=== PATIENT | female | born 1965 | race Caucasian/White ===

== ENCOUNTER → 2016-08-17 | Outpatient (CLI) | payer BC ==
[~2016-08-17] MED LIST: ADVIN25/60 INH; ALBU1AER9 INH; ALPR-411 PO; AMLO2.5T PO; DICY10CA12 PO; LISI-729 PO; MOME50SP5 NAE; MONT1TAB3 PO; NITR0.4S UT; PRLSR20 PO; PRM625 PO; VENL75CA73 PO
== END | disposition home or self-care (01) ==
LOC: C.PAPS 08:41
PROVIDERS: ATTEND Obstetrics & Gynecology
DX: Z01.419 Encounter for gynecological examination (general) (routine) without abnormal findings (principal)

== ENCOUNTER → 2016-11-16 | Outpatient (CLI) | payer BC ==
--- NOTE | 2016-11-18 08:21 | MAMMOGRAPHY REPORT ---
BILATERAL DIGITAL SCREENING MAMMOGRAM TOMOSYNTHESIS WITH CAD: 11/16/2016 CLINICAL HISTORY: Routine screening. Patient has no complaints. TECHNIQUE: Breast tomosynthesis in addition to standard 2D mammography was performed. Current study was also evaluated with a Computer Aided Detection (CAD) system. COMPARISON: Comparison is made to exams dated: 11/13/2015 mammogram, 08/10/2014 mammogram, 12/26/2012 kiki mogram, 12/16/2011 mammogram - [facility], 09/13/2009 mammogram, and 03/29/2008 mammog milan - [facility]. BREAST COMPOSITION: The tissue of both breasts is almost entirely fatty. FINDINGS: There are a few benign-appearing punctate microcalcifications in the breasts. No suspicio us mass, architectural distortion or cluster of microcalcifications is seen. IMPRESSION: ACR BI-RADS CATEGORY 1: NEGATIVE There is no mammographic evidence of malignancy. A 1 year screening mammogram is recommended. The pa tient will receive written notification of the results. Approximately 10% of breast cancers are not detected with mammography. A negative mammographic report should not delay biopsy if a clinically suggestive mass is present. Dalila Hayden M.D. ay/:11/17/2016 16:19:54 Advertising Analyst: Mary Jo COSME(Yaz)(Jessica), [facility] letter sent: Normal 1/2 BI-RADS Code: ACR BI-RADS Category 1: Negative
== END | disposition home or self-care (01) ==
LOC: C.MAMM 11:41
PROVIDERS: ATTEND Obstetrics & Gynecology
DX: Z12.31 Encounter for screening mammogram for malignant neoplasm of breast (principal)

== ENCOUNTER → 2016-12-07 | Outpatient (CLI) | payer BC ==
[~2016-12-07] MED LIST changes: +OPTIRAY 320 IV PRN
--- NOTE | 2016-12-07 17:51 | DIAGNOSTIC IMAGING REPORT ---
CT OF THE ABDOMEN AND PELVIS WITH CONTRAST CLINICAL HISTORY: Abdominal pain. COMPARISON STUDY: Abdominal ultrasound October 18, 2015. TECHNIQUE: Following IV administration of 120 mL of Optiray-320, axial images of the abdomen and pelvis were obtained from the lung bases to the proximal femurs. Images were reviewed in the axial, sagittal, and coronal planes. IV contrast was administered without complication. Oral contrast was administered. CT DOSE: 1003.78 mGycm FINDINGS: The liver, spleen, adrenal glands and pancreas are normal. Numerous bilateral renal calculi are noted. The largest is an 8 mm calculus within the upper pole of the left kidney. There are no ureteral calculi. There is no biliary or pancreatic ductal dilatation. There is no evidence for a bowel obstruction. There is a moderate to large amount of stool within the colon. The appendix is normal. There is moderate infiltration adjacent to the mid sigmoid colon. This colonic diverticulosis. There is no free air or abscess. The findings suggest acute diverticulitis. Skeletal structures are unremarkable. IMPRESSION: 1. Findings consistent with acute sigmoid diverticulitis. Moderate pericolonic infiltration. No free air or abscess. A follow-up colonoscopy once the patient's symptoms resolve is recommended to exclude the unlikely possibility of an underlying mucosal lesion. 2. Moderate to large amount of stool within the colon. 3. Bilateral nephrolithiasis. No ureteral calculi. Electronically signed by: Km Rendon M.D. 12/07/2016 5:50 PM Dictated Date/Time: 12/07/2016 5:42 PM
== END | disposition home or self-care (01) ==
LOC: C.CTS 14:59
PROVIDERS: ATTEND Family Medicine
DX: R10.9 Unspecified abdominal pain (principal); N20.0 Calculus of kidney

== ENCOUNTER 2017-02-05 15:37 | Emergency (ER) | payer BC ==
[~2017-02-05] VITALS: Ht 172.7 cm; Wt 86.8 kg
[~2017-02-05 15:37] MED LIST changes: -OPTIRAY 320 IV PRN
[2017-02-05 15:46] VITALS: TEMP 36.7; Ht 172.7 cm; Wt 86.8 kg
[2017-02-05] MEDS ORDERED: SODIUM CHLORIDE 0.9% 1000ML 1,000 ML IV STA (15:51)
--- NOTE | 2017-02-05 16:16 | DIAGNOSTIC IMAGING REPORT ---
CHEST ONE VIEW PORTABLE HISTORY: 52 years-old Female EVALUATE ALTERED MENTAL STATUS/WEAKNESS COMPARISON: Chest radiograph 04/13/2013 TECHNIQUE: Portable upright AP view of the chest FINDINGS: Cardiomediastinal and hilar silhouettes are within normal limits. No pneumothorax, pleural effusion or focal airspace consolidation. There is no overt pulmonary edema. The bones are grossly intact. IMPRESSION: No acute cardiopulmonary process. The above report was generated using voice recognition software. It may contain grammatical, syntax or spelling errors. Electronically signed by: Nader Byrd M.D. 02/05/2017 4:15 PM Dictated Date/Time: 02/05/2017 4:14 PM
[2017-02-05 16:38] LABS: BASO % 0.6 %; BASO ABS # 0.04 K/uL (0-0.2); COMPLETE YES; EOS % 1.4 %; HEMATOCRIT 38.1 % (37-47); IG% 0.2 %; LYMPH % 25.6 %; LYMPH ABS # 1.65 K/uL (1.2-3.4); MEAN CELL VOLUME 94.5 fL (80-100); MEAN CORPUSCULAR HEMOGLOBIN 30.8 pg (25-34); MEAN CORPUSCULAR HGB CONC 32.5 g/dl (32-36); MEAN PLATELET VOLUME 9.8 fL (7.4-10.4); MONO % 5.3 %; NEUT % 66.9 %; PLATELET COUNT 217 K/uL (130-400); RED BLOOD COUNT 4.03 M/uL (4.2-5.4); WHITE BLOOD COUNT 6.45 K/uL (4.8-10.8)
[2017-02-05 16:41] LABS: PROTHROMBIN TIME (PATIENT) 10.5 SECONDS (9.0-12.0)
--- NOTE | 2017-02-05 16:47 | DIAGNOSTIC IMAGING REPORT ---
HEAD WITHOUT CONTRAST (CT) CLINICAL HISTORY: 52 years-old Female with EVALUATE ALTERED MENTAL STATUS/WEAKNESS. TECHNIQUE: Multiple axial CT images of the head were obtained without contrast. A dose lowering technique was utilized adhering to the principles of ALARA. CT DOSE: 614.27 mGy.cm COMPARISON: None. FINDINGS: No acute intracranial hemorrhage, midline shift, mass, large territorial ischemia or abnormal extra-axial collection. Patchy areas of low attenuation within the periventricular white matter of the cerebral hemispheres bilaterally, notably within the frontal lobes at the level of the centrum semiovale are noted. The calvarium is intact. Small left mastoid effusion is noted. Paranasal sinuses are generally clear. Soft tissues and orbits are unremarkable. IMPRESSION: 1. No acute intracranial hemorrhage, midline shift or territorial ischemia. 2. Patchy areas of low-attenuation within the periventricular white matter of the cerebral hemispheres bilaterally, notably within the frontal lobes at the level of the centrum semiovale are nonspecific. Differential considerations would include chronic microvascular ischemic changes or demyelinating disease. 3. Small left mastoid effusion. The above report was generated using voice recognition software. It may contain grammatical, syntax or spelling errors. Electronically signed by: Nader Byrd M.D. 02/05/2017 4:46 PM Dictated Date/Time: 02/05/2017 4:43 PM
[2017-02-05 16:50] LABS: ALT/SGPT 26 U/L (12-78); AST/SGOT 20 U/L (15-37); BLOOD UREA NITROGEN 9 mg/dl (7-18); BUN/CREATININE RATIO 11.2 (10-20); CALCIUM 8.7 mg/dl (8.5-10.1); CARBON DIOXIDE 32 mmol/L (21-32); CHLORIDE 106 mmol/L (98-107); CREATININE 0.79 mg/dl (0.60-1.20); GLUCOSE 106 mg/dl (70-99); MAGNESIUM 2.3 mg/dl (1.8-2.4); POTASSIUM 3.6 mmol/L (3.5-5.1); SODIUM 142 mmol/L (136-145)
[2017-02-05 16:55] LABS: ALKALINE PHOSPHATASE 99 U/L (45-117); CKMB/CK RATIO 0.9 (0-3.0)
--- NOTE | 2017-02-05 17:02 | DIAGNOSTIC IMAGING REPORT ---
LEFT WRIST 4 VIEWS HISTORY: Fall. left ulnar wrist pain COMPARISON: None. FINDINGS: There is no fracture or dislocation. Soft tissues are unremarkable. No radiopaque foreign bodies. Severe osteoarthritis at the first carpometacarpal joint. IMPRESSION: No fractures. Electronically signed by: Serge Fox M.D. 02/05/2017 5:01 PM Dictated Date/Time: 02/05/2017 5:00 PM
[2017-02-05 17:22] LABS: URINE APPEARANCE CLEAR (CLEAR); URINE BILIRUBIN NEG (NEG); URINE COLOR YELLOW; URINE EPITHELIAL CELL AUTO >30 /lpf (0-5); URINE NITRITE NEG (NEG); URINE SPECIFIC GRAVITY 1.018 (1.000-1.030); UROBILINOGEN NEG (NEG); ZZUR CULT IF INDIC CLEAN CATCH NO
[2017-02-05 17:26] LABS: MANUAL MICROSCOPIC REQUIRED? NO; REVIEW REQ? NO
--- NOTE | 2017-02-05 17:47 | EMERGENCY ROOM VISIT NOTE ---
History Report prepared by Gustavo: John Garcia Under the Supervision of: Dr. Doug Feliz D.O. First contact with patient: 15:51 Chief Complaint: FALL Stated Complaint: HEADACHE/BLACK EYE/NECK/SHOULDER PAIN FR FALL 02/04 History of Present Illness The patient is a 52 year old female who presents to the Emergency Room with complaints of a sudden fall occurring around 0100 this morning after losing consciousness. The patient was in the kitchen walking, and she fell and hit her left forehead, left wrist, and left knee. She is currently complaining of a headache on the left side and some left knee pain. The patient denies any vomiting, weakness, numbness, chest pain or shortness of breath. She states that she was not dizzy or light headed prior to falling. The patient states that she is not on any blood thinners. She has a history of asthma, IBS, and an FL during a surgery, and she denies any history of seizures. The patient states that she was at [place] [facility] [facility], and they told her to come to the ED for evaluation and a CT scan. Source of History: patient Onset: 0100 this morning Position: other (global) Quality: other (fall) Timing: other (sudden) Associated Symptoms: + headache Note: Associated symptoms: left knee pain Review of Systems See HPI for pertinent positives & negatives. A total of 10 systems reviewed and were otherwise negative. Past Medical & Surgical Medical Problems: (1) Heart attack Surgical Problems: (1) History of sinus surgery Social History Smoking Status: Never Smoker Alcohol Use: none Drug Use: none Occupation Status: employed Current/Historical Medications Scheduled Estrogens, Conjugated (Premarin), 0.625 MG PO DAILY Fluticasone Prop/Salmeterol (Advair Diskus 250/50 60 Dose), 1 PUFF INH BID Nitroglycerin (Nitrostat), 0.4 MG UT PRN Omeprazole (Prilosec), 20 MG PO DAILY Venlafaxine Hcl (Venlafaxine Extended Rel), 75 MG PO DAILY Scheduled PRN Albuterol (Proair Hfa), 2 PUFFS INH QID PRN for Shortness of Breath Alprazolam (Xanax), 0.5 MG PO DAILY PRN for UNKN Dicyclomine Hcl (Dicyclomine Hcl), 10 MG PO BID/PRN PRN Mometasone Furoate (Nasonex), 2 SPRAYS CHRISTINE DAILY PRN Montelukast Sodium (Singulair), 10 MG PO DAILY PRN Allergies Coded Allergies: Lactose (Verified Allergy, Intermediate, ABDOMINAL PAIN, DIARRHEA, 02/05/17) Codeine (Verified Allergy, Unknown, 02/05/17) Meperidine (Verified Allergy, Unknown, 02/05/17) Phenobarbital (Unverified Allergy, Unknown, unknown, 02/05/17) Physical Exam Vital Signs Date Time Temp Pulse Resp B/P (MAP) Pulse Ox O2 Delivery O2 Flow Rate FiO2 02/05/17 18:45 81 13 151/75 98 02/05/17 17:04 20 96 Room Air 02/05/17 17:04 60 20 128/72 96 Room Air 77 131/77 82 129/91 02/05/17 16:29 75 02/05/17 15:46 36.7 63 18 143/85 97 Room Air Physical Exam CONSTITUTIONAL/VITAL SIGNS: Reviewed / noted above. GENERAL: Non-toxic in appearance. INTEGUMENTARY: Warm, dry, and [place]. HEAD: Normocephalic. EYES:Small ecchymosis in the medial canthus of the left eye. without scleral icterus ENT/OROPHARYNX: clear and moist. LYMPHADENOPATHY/NECK: Is supple without lymphadenopathy or meningismus. RESPIRATORY: Lungs clear and equal. CARDIOVASCULAR: Regular rate and rhythm. GI/ABDOMEN: Soft and nontender. No organomegaly or pulsatile mass. No rebound or guarding. Normal bowel sounds. EXTREMITIES: Tenderness to palpation of the left ulnar styloid. Small contusion to the left medial knee. Full range of motion of the extremities. Warm and well perfused. BACK: No CVA tenderness. NEUROLOGICAL: Intact without focal deficits. PSYCHIATRIC: normal affect. MUSCULOSKELETAL: Normally developed with good muscle tone. Medical Decision & Procedures ER Provider Diagnostic Interpretation: Radiology results as stated below per my review and radiologist interpretation: HEAD WITHOUT CONTRAST (CT) CLINICAL HISTORY: 52 years-old Female with EVALUATE ALTERED MENTAL STATUS/WEAKNESS. TECHNIQUE: Multiple axial CT images of the head were obtained without contrast. A dose lowering technique was utilized adhering to the principles of ALARA. CT DOSE: 614.27 mGy.cm COMPARISON: None. FINDINGS: No acute intracranial hemorrhage, midline shift, mass, large territorial ischemia or abnormal extra-axial collection. Patchy areas of low attenuation within the periventricular white matter of the cerebral hemispheres bilaterally, notably within the frontal lobes at the level of the centrum semiovale are noted. The calvarium is intact. Small left mastoid effusion is noted. Paranasal sinuses are generally clear. Soft tissues and orbits are unremarkable. IMPRESSION: 1. No acute intracranial hemorrhage, midline shift or territorial ischemia. 2. Patchy areas of low-attenuation within the periventricular white matter of the cerebral hemispheres bilaterally, notably within the frontal lobes at the level of the centrum semiovale are nonspecific. Differential considerations would include chronic microvascular ischemic changes or demyelinating disease. 3. Small left mastoid effusion. The above report was generated using voice recognition software. It may contain grammatical, syntax or spelling errors. Electronically signed by: Nader Byrd M.D. 02/05/2017 4:46 PM Dictated Date/Time: 02/05/2017 4:43 PM CHEST ONE VIEW PORTABLE HISTORY: 52 years-old Female EVALUATE ALTERED MENTAL STATUS/WEAKNESS COMPARISON: Chest radiograph 04/13/2013 TECHNIQUE: Portable upright AP view of the chest FINDINGS: Cardiomediastinal and hilar silhouettes are within normal limits. No pneumothorax, pleural effusion or focal airspace consolidation. There is no overt pulmonary edema. The bones are grossly intact. IMPRESSION: No acute cardiopulmonary process. The above report was generated using voice recognition software. It may contain grammatical, syntax or spelling errors. Electronically signed by: Nader Byrd M.D. 02/05/2017 4:15 PM Dictated Date/Time: 02/05/2017 4:14 PM LEFT WRIST 4 VIEWS HISTORY: Fall. left ulnar wrist pain COMPARISON: None. FINDINGS: There is no fracture or dislocation. Soft tissues are unremarkable. No radiopaque foreign bodies. Severe osteoarthritis at the first carpometacarpal joint. IMPRESSION: No fractures. Electronically signed by: Serge Fox M.D. 02/05/2017 5:01 PM Dictated Date/Time: 02/05/2017 5:00 PM Laboratory Results 02/05/17 16:16 Red Blood Count 4.03, Mean Corpuscular Volume 94.5, Mean Corpuscular Hemoglobin 30.8, Mean Corpuscular Hemoglobin Concent 32.5, Mean Platelet Volume 9.8, Neutrophils (%) (Auto) 66.9, Lymphocytes (%) (Auto) 25.6, Monocytes (%) (Auto) 5.3, Eosinophils (%) (Auto) 1.4, Basophils (%) (Auto) 0.6, Neutrophils # (Auto) 4.32, Lymphocytes # (Auto) 1.65, Monocytes # (Auto) 0.34, Eosinophils # (Auto) 0.09, Basophils # (Auto) 0.04 02/05/17 16:16 Test 02/05/17 16:16 02/05/17 17:10 White Blood Count 6.45 K/uL (4.8-10.8) Red Blood Count 4.03 M/uL (4.2-5.4) Hemoglobin 12.4 g/dL (12.0-16.0) Hematocrit 38.1 % (37-47) Mean Corpuscular Volume 94.5 fL (80-100) Mean Corpuscular Hemoglobin 30.8 pg (25-34) Mean Corpuscular Hemoglobin Concent 32.5 g/dl (32-36) Platelet Count 217 K/uL (130-400) Mean Platelet Volume 9.8 fL (7.4-10.4) Neutrophils (%) (Auto) 66.9 % Lymphocytes (%) (Auto) 25.6 % Monocytes (%) (Auto) 5.3 % Eosinophils (%) (Auto) 1.4 % Basophils (%) (Auto) 0.6 % Neutrophils # (Auto) 4.32 K/uL (1.4-6.5) Lymphocytes # (Auto) 1.65 K/uL (1.2-3.4) Monocytes # (Auto) 0.34 K/uL (0.11-0.59) Eosinophils # (Auto) 0.09 K/uL (0-0.5) Basophils # (Auto) 0.04 K/uL (0-0.2) RDW Standard Deviation 44.5 fL (36.4-46.3) RDW Coefficient of Variation 12.8 % (11.5-14.5) Immature Granulocyte % (Auto) 0.2 % Immature Granulocyte # (Auto) 0.01 K/uL (0.00-0.02) Prothrombin Time 10.5 SECONDS (9.0-12.0) Prothromb Time International Ratio 1.0 (0.9-1.1) Activated Partial Thromboplast Time 26.6 SECONDS (21.0-31.0) Partial Thromboplastin Ratio 1.0 Anion Gap 4.0 mmol/L (3-11) Est Creatinine Clear Calc Drug Dose 98.2 ml/min Estimated GFR () 101.2 Estimated GFR (Non- 87.3 BUN/Creatinine Ratio 11.2 (10-20) Calcium Level 8.7 mg/dl (8.5-10.1) Magnesium Level 2.3 mg/dl (1.8-2.4) Total Bilirubin 0.4 mg/dl (0.2-1) Direct Bilirubin < 0.1 mg/dl (0-0.2) Aspartate Amino Transf (AST/SGOT) 20 U/L (15-37) Alanine Aminotransferase (ALT/SGPT) 26 U/L (12-78) Alkaline Phosphatase 99 U/L (45-117) Total Creatine Kinase 196 U/L (26-192) Creatine Kinase MB 1.8 ng/ml (0.5-3.6) Creatine Kinase MB Ratio 0.9 (0-3.0) Troponin I < 0.015 ng/ml (0-0.045) Total Protein 7.1 gm/dl (6.4-8.2) Albumin 3.4 gm/dl (3.4-5.0) Urine Color YELLOW Urine Appearance CLEAR (CLEAR) Urine pH 7.0 (4.5-7.5) Urine Specific [place] 1.018 (1.000-1.030) Urine Protein NEG (NEG) Urine Glucose (UA) NEG (NEG) Urine Ketones NEG (NEG) Urine Occult Blood 1+ (NEG) Urine Nitrite NEG (NEG) Urine Bilirubin NEG (NEG) Urine Urobilinogen NEG (NEG) Urine Leukocyte Esterase NEG (NEG) Urine WBC (Auto) 1-5 /hpf (0-5) Urine RBC (Auto) 10-30 /hpf (0-4) Urine Hyaline Casts (Auto) 1-5 /lpf (0-5) Urine Epithelial Cells (Auto) >30 /lpf (0-5) Urine Bacteria (Auto) NEG (NEG) Laboratory results as stated above per my review. Medications Administered Medications (Trade) Dose Ordered Sig/Kasia Route Start Time Stop Time Status Last Admin Dose Admin Sodium Chloride 1,000 ml @ 999 mls/hr Q1H1M STAT IV 02/05/17 15:51 02/05/17 16:51 DC 02/05/17 17:09 999 MLS/HR ECG Indication: syncope Rate (beats per minute): 64 Rhythm: normal sinus Findings: no ectopy, other (no acute injury) ED Course 1551: Sodium Chloride 1000 ml @ 999 mls/hr IV 1610: Previous medical records were reviewed. The patient was evaluated in room B4. A complete history and physical examination was performed. 1749: On reevaluation, the patient is feeling well. I discussed the results and findings with the patient. She verbalized agreement of the treatment plan. She was discharged home. Medical Decision Differential includes close head injury, intracranial bleed, facial trauma, cervical spine trauma, chest and thoracic trauma, abdominal and intra-abdominal trauma, spine neurologic trauma, extremity trauma, acute cardiac dysrhythmia, microinfarction, CVA, TIA, dehydration, anemia, electrolyte disturbance, seizure , trauma, intracranial bleeding, acute vascular catastrophe, thoracic aortic dissection, PE, abdominal aortic aneurysm rupture, ectopic rupture. This is a 52-year-old female who presents to the ED with a chief complaint of a fall. The patient states that she fell last night. She does not recall the events of the fall but thinks that she may have fallen asleep. It was around 1 AM. She hit her left frontal area on a stove. She went to outpatient clinic today and was referred here because she was unable to get a CT scan of her brain approved by her insurance. The patient has complaints of pain in the left wrist as well as the left knee. She denies any other somatic symptoms at this time. An EKG shows a normal sinus rhythm. CT scan of the brain did not show acute process. She does have some chronic findings that can be followed up with the PCP. Chest x-ray and wrist x-ray were negative for acute disease. Blood work including CBC, complete metabolic panel, troponin are normal. Urine did not show infection. The patient was told the results. She is felt to be stable for discharge and outpatient follow-up. Medication Reconcilliation Current Medication List: was personally reviewed by me Blood Pressure Screening Patient's blood pressure: Normal blood pressure Impression Primary Impression: Fall Additional Impression: Contusion of multiple sites Scribe Attestation The scribe's documentation has been prepared under my direction and personally reviewed by me in its entirety. I confirm that the note above accurately reflects all work, treatment, procedures, and medical decision making performed by me. Departure Information Dispostion Home / Self-Care Referrals Leo Hull M.D. (PCP) Forms HOME CARE DOCUMENTATION FORM, IMPORTANT VISIT INFORMATION Patient Instructions My [facility] Additional Instructions There was no acute abnormality seen on your CAT scan of the head. There were some chronic findings that you can speak with your doctor about. No fractures noted on x-ray the wrist. Follow-up with your doctor for further care and evaluation in 5-7days for recheck. Return to the emergency department for worsening or new symptoms or any concerns. You have been examined and treated today on an emergency basis only. This is not a substitute for, or an effort to provide, complete comprehensive medical care. It is impossible to recognize and treat all injuries or illnesses in a single emergency department visit. It is therefore important that you follow up closely with your doctor. Call as soon as possible for an appointment. Problem Qualifiers
[2017-02-05 18:45] VITALS: BP 151/75; PULSE 81; O2SAT 98
== END 2017-02-05 18:45 | disposition home or self-care (01) ==
LOC: C.EDB 15:38
DX: T14.8 Other injury of unspecified body region (principal); W19.XXXA Unspecified fall, initial encounter; Y92.010 Kitchen of single-family (private) house as the place of occurrence of the external cause; J45.909 Unspecified asthma, uncomplicated; K58.9 Irritable bowel syndrome, unspecified; I25.2 Old myocardial infarction; Z79.899 Other long term (current) drug therapy

== ENCOUNTER → 2017-03-30 | Outpatient (CLI) | payer BC ==
[~2017-03-30] VITALS: Ht 172.7 cm; Wt 90.4 kg
[~2017-03-30] MED LIST changes: -AMLO2.5T PO; -LISI-729 PO
[2017-03-30 13:13] VITALS: BP 140/72; PULSE 78; Ht 172.7 cm; Wt 90.4 kg
== END | disposition home or self-care (01) ==
LOC: C.NEUR 12:55
PROVIDERS: ATTEND Physician Assistant Medical
DX: R06.83 Snoring (principal); F41.8 Other specified anxiety disorders; R53.83 Other fatigue; I10 Essential (primary) hypertension; R63.4 Abnormal weight loss; F98.8 Other specified behavioral and emotional disorders with onset usually occurring in childhood and adolescence

== ENCOUNTER → 2017-04-20 | Outpatient (CLI) | payer BC ==
[~2017-04-20] VITALS: Ht 172.7 cm; Wt 94.6 kg
[2017-04-20 13:51] VITALS: BP 136/78; PULSE 93; Ht 172.7 cm; Wt 94.6 kg
== END | disposition home or self-care (01) ==
LOC: C.NEUR 13:30
PROVIDERS: ATTEND Internal Medicine Pulmonary Disease
DX: R53.83 Other fatigue (principal); G47.19 Other hypersomnia; R90.89 Other abnormal findings on diagnostic imaging of central nervous system; F41.8 Other specified anxiety disorders

== ENCOUNTER → 2017-07-02 | Outpatient (CLI) | payer OTHER | END | disposition home or self-care (01) | LOC: C.LAB1850 14:54 | PROVIDERS: ATTEND Obstetrics & Gynecology | DX: R39.9 Unspecified symptoms and signs involving the genitourinary system (principal) ==

== ENCOUNTER → 2017-09-23 | Outpatient (CLI) | payer OTHER | END | disposition home or self-care (01) | LOC: C.PAPS 09:32 | PROVIDERS: ATTEND Obstetrics & Gynecology | DX: Z12.4 Encounter for screening for malignant neoplasm of cervix (principal) ==

== ENCOUNTER 2022-03-23 16:32 | Observation (INO) ==
--- NOTE | 2022-03-23 16:39 | ED Triage Note ---
Date of Service March 23, 2022 History of Present Illness This patient was briefly evaluated while in triage. An abbreviated physical exam was performed. This patient is a 57-year-old Female with past medical history of [place] in 2007 (associated with epi in anesthesia) who presents to the ED for evaluation of chest pain since Wednesday. Does have history of similar symptoms. Physical Exam VITALS: Vitals are noted on the nurse's note and reviewed by myself. GENERAL: This is a 57 year old white female, in no acute distress, nondiaphoretic, well-developed well-nourished. SKIN: No obvious rashes, edema, erythema HEAD: Normocephalic atraumatic. EYES: Conjunctivae without injection, sclerae without icterus. NECK: No JVD. LUNGS: No retractions or accessory muscle use. MUSCULOSKELETAL: Normal gait. NEURO: Patient was alert and oriented to person place and time. No focal neurological deficits. Initial orders for labs and / or imaging were placed and patient was placed in the waiting area until a bed is available. Please see further documentation for the full ED course. MDM / Impression Impression Impression: Chest pain, HTN (hypertension)
[2022-03-23 17:07] LABS: Basophils # (auto) 0.05 K/uL (0-0.2); Basophils % (auto) 0.6 %; Eosinophils # (auto) 0.13 K/uL (0-0.50); Eosinophils % (auto) 1.5 %; Hematocrit (blood only) 38.2 % (34.1-44.9); Hemoglobin 13.1 g/dl (12.0-16.0); Immature Granulocytes # (auto) 0.03 K/uL (0.00-0.02); Immature Granulocytes % (auto) 0.4 %; Lymphocytes # (auto) 2.47 K/uL (1.2-3.4); Lymphocytes % (auto) 29.2 %; Mean Corpuscular Hgb Conc 34.3 g/dL (32.0-36.0); Mean Corpuscular Volume 90.3 fL (80.0-100.0); Mean Platelet Volume 9.9 fL (9.4-12.3); Monocytes # (auto) 0.63 K/uL (0.24-0.82); Monocytes % (auto) 7.4 %; Neutrophils # (auto) 5.16 K/uL (1.4-6.5); Neutrophils % (auto) 60.9 %; Platelet Count 217 K/uL (130-400); RDW Coefficient of Variation 12.3 % (11.5-14.5); RDW Standard Deviation 40.1 fL (36.4-46.3); Red Blood Count 4.23 M/uL (3.93-5.22); White Blood Count 8.47 K/ul (4.8-10.8)
[2022-03-23 17:19] LABS: Partial Thromboplastin Ratio 0.9; Prothrombin Time 10.8 Seconds (9.0-12.0)
[2022-03-23 17:48] LABS: Alanine Aminotransferase 19 U/L (7-52); Albumin Globulin Ratio 1.4 (0.9-2); Albumin Level 3.9 gm/dl (3.4-5.0); Alkaline Phosphatase 93 U/L (34-104); Anion Gap 8 (3-11); Aspartate Aminotransferase 25 U/L (13-39); BUN Creatinine Ratio 15.3 (10-20); Bilirubin,Total 0.5 mg/dl (0.2-1.0); Blood Urea Nitrogen 13 mg/dl (6-23); Calcium 9.1 mg/dl (8.5-10.1); Carbon Dioxide 27 mmol/L (21-32); Chloride 104 mmol/L (98-107); Est GFR (African American) 89.4 ml/min; Est GFR (Non-African American) 77.1 ml/min; Globulin 2.7 gm/dl (2.5-4.0); Glucose 117 mg/dl (70-99(Fasting)); Lipase 18 U/L (11-82); Potassium 3.5 mmol/L (3.5-5.1); Sodium 139 mmol/L (136-145); Total Protein 6.6 gm/dl (6.0-8.3)
--- NOTE | 2022-03-23 17:55 | XRay Report ---
SINGLE VIEW CHEST CLINICAL HISTORY: Atypical chest pain. FINDINGS: 2 AP, portable, upright chest radiographs are compared to study dated 03/08/2019 and correla marquez with chest CT dated 03/24/2019. The cardiomediastinal silhouette is unremarkable. There are tiny calcified granulomas. The lungs and pleural spaces are otherwise clear. No pneumothorax is seen. The bony thorax is grossly intact. IMPRESSION: No active disease in the chest. ACT 112: Negative or not required by law. Electronically signed by: Rafael Bell M.D. 03/23/2022 5:54 PM
[2022-03-23] MEDS ORDERED: ASPIRIN CHEW 324 MG PO STA (20:30)
--- NOTE | 2022-03-23 20:34 | Emergency Department Note ---
Impression & Plan Chest pain, HTN (hypertension) ED Provider Note NAME: ABBY ROBERTS AGE: 57 SEX: F : 1965 ARRIVES VIA: Walk-In INFORMANT: Patient ED PROVIDER(S): New Blackman DO CHIEF COMPLAINT: Chest pain HPI: Patient is a 57-year-old female with a past medical history of previous VT, asthma, depression and syncope that presents to the ER for exertional chest pain which has been present since this past Wednesday. She admits to some shortness of breath with it. No arm or jaw pain. She notes normally when she walks she feels her heart racing and will skip a beat when she exerts herself. On Wednesday she was moving quickly to get to work and she noticed this midsternal pressure/tightness which was much severe than usual. Since then has been off and on with exertion. Denies any dysuria, urgency, or frequency. No other exacerbating or remitting factors. She notes it feels like she has to take her nitro but its been . ROS: See above HPI for pertinent positives & negatives. A total of 10 systems reviewed and were otherwise negative. PAST MEDICAL HISTORY:See Below PAST SURGICAL HISTORY:See Below FAMILY HISTORY:See Below SOCIAL HISTORY:See Below HOME MEDICATIONS:See Below ALLERGIES:See Below VITALS:See Below PHYSICAL EXAMINATION: GENERAL: Sitting up in bed, alert, well appearing, well nourished, no distress, non-toxic EYE EXAM: normal conjunctiva. OROPHARYNX: no exudate, no erythema, lips, buccal mucosa, and tongue normal and mucous membranes are moist NECK: supple, no nuchal rigidity, no adenopathy, non-tender LUNGS: Clear to auscultation. Normal chest wall mechanics HEART: no murmurs, S1 normal and S2 normal ABDOMEN: abdomen soft, non-tender, normo-active bowel sounds, no masses, no rebound or guarding. UPPER EXTREMITIES: upper extremities are grossly normal. LOWER EXTREMITIES: No pitting edema. NEURO EXAM: Normal sensorium, cranial nerves II-XII grossly intact, normal speech, no gross weakness of arms, no gross weakness of legs. MEDICAL DECISION MAKING: Patient is a 57-year-old female who presents ER for above-stated complaint. IV was established blood work was obtained. Labs show no significant leukocytosis or anemia. INR unremarkable. BMP along with LFTs bilirubin and lipase was unremarkable. Troponin was negative. COVID unremarkable. Chest x-ray was unremarkable. EKG was nondiagnostic. Patient was given aspirin nitro. Updated bedside. Discussed with hospitalist for further evaluation in light of her exertional chest pain, risk factors and previous VT. Triage Nursing notes reviewed. Limited review of prior medical records performed Vital Signs: reviewed and remarkable for HTN Differential diagnosis: Cardiac ischemia, aortic dissection, pulmonary embolism, pneumothorax, pneumonia, pericarditis, myocarditis, esophageal rupture, GERD, cholecystitis, pancreatitis, musculoskeletal, as well as other pathologies. ER treatment provided: See below Diagnostics interpreted by me: ECG: Sinus rhythm at 82 Left axis No PVCs QTC 439 Cardiac Monitoring: An order was placed for continuous cardiac monitoring. The monitor shows a rate of 90 with sinus rhythm. Laboratory studies: As stated above and show below. Imaging studies: Portable AP upright 1 view the chest was unremarkable Consultation(s): Discussed with Katherine Osei for further evaluation Procedures: none Critical Care: None Past Med/Surg History Medical History (Updated 03/24/22 @ 01:11 by New Blackman DO) Asthma Well controlled. Managed with advair + montelukast Chronic venous stasis B/l ankle edema L>R. DANIELLE (04/24) negative for DVT w/ confirmation of L popliteal cyst. Arterial duplex (06/24) normal. Wearing compression stockings Colostomy in place Demyelinating disorder Variant of multiple sclerosis followed by neurology at [facility]. Mild cognitive difficulty. Depression Followed by psych (Dr. Osborn) and is currently managed with venlafaxine + alprazolam + adderall Endometriosis Heart attack History of diverticulitis Hospitalization in [place] (12/21) for sigmoid diverticulitis. History of heart attack Vulvitis Vulvovaginitis Surgical History History of myringotomy History of sinus surgery S/P cholecystectomy S/P hysterectomy S/P tonsillectomy and adenoidectomy Family History Mother Breast cancer Chondrosarcoma L Shoulder Denies family history of Colon cancer Ovarian cancer Prostate cancer Myocardial infarction Social History Smoking Status: Never smoker Hx Alcohol Use: No Hx Substance Use: No Preferred Language: Occitan Visual Impairment: No Limitations Hearing Ability: Normal marital status: single Current Living Situation: Family current occupational status: employed Feels Safe at Home: Yes Childhood Exposure to Second-Hand Smoke: Yes Seatbelt Use: always Sunscreen Use: Yes Allergies Allergies Allergy/AdvReac Type Severity Reaction Status Date / Time codeine Allergy Intermediate n/v Verified 03/23/22 22:01 lactose Allergy Intermediate ABDOMINAL Verified 03/23/22 22:01 PAIN, DIARRHEA meperidine Allergy Intermediate n/v Verified 03/23/22 22:01 phenobarbital Allergy Mild unknown Verified 03/23/22 22:01 Home Meds Home Medications Medication Instructions Recorded Confirmed acetaminophen 500 mg tablet 1,000 mg PO Q12H 03/23/22 03/23/22 (Tylenol Extra Strength) alprazolam 0.25 mg tablet 0.25 mg PO TID PRN Anxiety 03/23/22 03/23/22 ammonium lactate 12 % lotion 1 applic topical DAILY 03/23/22 03/23/22 buspirone 10 mg tablet 10 mg PO TID 03/23/22 03/23/22 dextroamphetamine-amphetamine 20 20 mg PO DAILY 03/23/22 03/23/22 mg tablet fluticasone 500 mcg-salmeterol 50 1 inh inhalation BID 03/23/22 03/23/22 mcg/dose blistr powdr for inhalation (Advair Diskus) hydrocortisone 2.5 % topical cream 1 applic topical BID PRN ITCHY 03/23/22 03/23/22 AREAS loratadine 10 mg tablet (Claritin) 10 mg PO DAILY PRN Allergy Symptoms 03/23/22 03/23/22 omega 7-hsb-wtk-fish oil 1,000 mg 1 cap PO DAILY 03/23/22 03/23/22 (120 mg-180 mg) capsule (Fish Oil) ondansetron HCl 4 mg tablet 4 mg PO Q8H PRN NAUSEA/VOMITING 03/23/22 03/23/22 Previous Rx's Medication Instructions Recorded venlafaxine 75 mg tablet 75 mg PO QAM #90 caps 03/31/19 albuterol sulfate 90 mcg/actuation 2 puff inhalation Q6H PRN sob #8.5 06/29/19 aerosol inhaler grams nitroglycerin 0.4 mg sublingual 0.4 mg sublingual DIRECTED PRN 06/29/19 tablet Chest Pain #30 tabs omeprazole 20 mg tablet,delayed 20 mg PO QAM #90 caps 06/29/19 release meclizine 25 mg tablet 25 mg PO DIRECTED PRN Dizziness 11/07/19 #30 tabs estradiol 1 mg tablet 1 mg PO DAILY #90 tabs 12/24/21 Results & Data (ED) Vital Signs Vital Signs - 24 hr 03/23/22 16:37 03/23/22 20:47 Temperature 36.8 C Temperature Source Temporal Artery Scan Pulse Rate 89 Pulse Rate [Finger] 70 Respiratory Rate 18 18 Respiratory Effort / Characteristics Non-Labored Spontaneous Respiratory Depth Normal Respiratory Pattern Regular Blood Pressure 174/104 H Blood Pressure [Right Arm] 167/84 H Blood Pressure Mean 127 Blood Pressure Mean [Right Arm] 111 Blood Pressure Position Sitting Pulse Oximetry 97 98 Oxygen Delivery Method Room Air Room Air Sepsis Recent Fever Within 48 Hours No Sepsis New/Unexplained Change in Mental Status N/A Sepsis Action Taken by Nursing No Action Required Laboratory Data Result diagrams: 03/23/22 16:55 03/23/22 23:49 Lab Results 03/23/22 03/23/22 03/23/22 Range/Units 16:55 16:55 16:55 WBC 8.47 (4.8-10.8) K/ul RBC 4.23 (3.93-5.22) M/uL Hgb 13.1 (12.0-16.0) g/dl Hct 38.2 (34.1-44.9) % MCV 90.3 (80.0-100.0) fL MCH 31.0 (25.0-34.0) pg MCHC 34.3 (32.0-36.0) g/dL RDW Std Deviation 40.1 (36.4-46.3) fL RDW Coeff of Keisha 12.3 (11.5-14.5) % Plt Count 217 (130-400) K/uL MPV 9.9 (9.4-12.3) fL Immature Gran % (Auto) 0.4 % Neut % (Auto) 60.9 % Lymph % (Auto) 29.2 % [place] % (Auto) 7.4 % Eos % (Auto) 1.5 % Baso % (Auto) 0.6 % Neut # (Auto) 5.16 (1.4-6.5) K/uL Lymph # (Auto) 2.47 (1.2-3.4) K/uL [place] # (Auto) 0.63 (0.24-0.82) K/uL Eos # (Auto) 0.13 (0-0.50) K/uL Baso # (Auto) 0.05 (0-0.2) K/uL Immature Gran # (Auto) 0.03 H (0.00-0.02) K/uL PT 10.8 (9.0-12.0) Seconds INR 1.0 (0.9-1.1) APTT 24.0 (21.0-31.0) Seconds PTT Ratio 0.9 Sodium 139 (136-145) mmol/L Potassium 3.5 (3.5-5.1) mmol/L Chloride 104 (98-107) mmol/L Carbon Dioxide 27 (21-32) mmol/L Anion Gap 8 (3-11) BUN 13 (6-23) mg/dl Creatinine 0.85 (0.6-1.2) mg/dl Est Cr Clr Drug Dosing Not Reportable Est GFR ( Amer) 89.4 ml/min Est GFR (Non-Af Amer) 77.1 ml/min BUN/Creatinine Ratio 15.3 (10-20) Glucose 117 H (70-99(Fasting)) mg/dl Calcium 9.1 (8.5-10.1) mg/dl Total Bilirubin 0.5 (0.2-1.0) mg/dl AST 25 (13-39) U/L ALT 19 (7-52) U/L Alkaline Phosphatase 93 (34-104) U/L Troponin I High Sens 13.0 (0-14) pg/ml Total Protein 6.6 (6.0-8.3) gm/dl Albumin 3.9 (3.4-5.0) gm/dl Globulin 2.7 (2.5-4.0) gm/dl Albumin/Globulin Ratio 1.4 (0.9-2) Lipase 18 (11-82) U/L SARS-CoV-2, RNA, NAAT (NEGATIVE) 03/23/22 Range/Units 20:49 WBC (4.8-10.8) K/ul RBC (3.93-5.22) M/uL Hgb (12.0-16.0) g/dl Hct (34.1-44.9) % MCV (80.0-100.0) fL MCH (25.0-34.0) pg MCHC (32.0-36.0) g/dL RDW Std Deviation (36.4-46.3) fL RDW Coeff of Keisha (11.5-14.5) % Plt Count (130-400) K/uL MPV (9.4-12.3) fL Immature Gran % (Auto) % Neut % (Auto) % Lymph % (Auto) % [place] % (Auto) % Eos % (Auto) % Baso % (Auto) % Neut # (Auto) (1.4-6.5) K/uL Lymph # (Auto) (1.2-3.4) K/uL [place] # (Auto) (0.24-0.82) K/uL Eos # (Auto) (0-0.50) K/uL Baso # (Auto) (0-0.2) K/uL Immature Gran # (Auto) (0.00-0.02) K/uL PT (9.0-12.0) Seconds INR (0.9-1.1) APTT (21.0-31.0) Seconds PTT Ratio Sodium (136-145) mmol/L Potassium (3.5-5.1) mmol/L Chloride (98-107) mmol/L Carbon Dioxide (21-32) mmol/L Anion Gap (3-11) BUN (6-23) mg/dl Creatinine (0.6-1.2) mg/dl Est Cr Clr Drug Dosing Est GFR ( Amer) ml/min Est GFR (Non-Af Amer) ml/min BUN/Creatinine Ratio (10-20) Glucose (70-99(Fasting)) mg/dl Calcium (8.5-10.1) mg/dl Total Bilirubin (0.2-1.0) mg/dl AST (13-39) U/L ALT (7-52) U/L Alkaline Phosphatase (34-104) U/L Troponin I High Sens (0-14) pg/ml Total Protein (6.0-8.3) gm/dl Albumin (3.4-5.0) gm/dl Globulin (2.5-4.0) gm/dl Albumin/Globulin Ratio (0.9-2) Lipase (11-82) U/L SARS-CoV-2, RNA, NAAT NEGATIVE (NEGATIVE) Administered Medications Discontinued Medications Aspirin (Aspirin Chew 324 Mg) 324 mg PO NOW STA Stop: 03/23/22 20:31 Last Admin: 03/23/22 20:44 Dose: 324 mg Documented By: QGV Buspirone HCl (Buspirone 5 Mg Tab) 10 mg PO ONE STA Stop: 03/23/22 22:51 Last Admin: 03/24/22 00:58 Dose: 10 mg Documented By: [facility] Imaging Data Radiologist's Impression: Chest X-Ray 03/23/22 16:39 SINGLE VIEW CHEST CLINICAL HISTORY: Atypical chest pain. FINDINGS: 2 AP, portable, upright chest radiographs are compared to study dated 03/08/2019 and correlated with chest CT dated 03/24/2019. The cardiomediastinal silhouette is unremarkable. There are tiny calcified granulomas. The lungs and pleural spaces are otherwise clear. No pneumothorax is seen. The bony thorax is grossly intact. IMPRESSION: No active disease in the chest. ACT 112: Negative or not required by law. Electronically signed by: Rafael Bell M.D. 03/23/2022 5:54 PM Discharge Plan Visit Data Chief Complaint: Chest Pain Stated Complaint: CHEST PAIN,HEAVINESS TODAY ED Provider: New Blackman Discharge Problem: Chest pain, HTN (hypertension) Patient Disposition: Admitted As Inpatient Discharge Instructions Interventions: ED Discharge Assessment Last Done: 03/23/22 22:39
--- NOTE | 2022-03-23 20:46 | History & Physical Report ---
Date of Service March 23, 2022 Assessment & Plan (1) Chest pain: Plan: 57 y/o female w/ obesity, asthma, braydon, colostomy, and hx of previous VT who presents w/ 4 days of nonradiating exertional midsternal chest pain. - concern for cardiac chest pain given hx of VT and exertional symptoms. lower suspicion for infectious etiology - Adderall and estradiol use noted - w/ palpitations, considered arrhythmia; monitor on telemetry - heart score: 5 points (moderate hx, nonspecific ecg changes, age, 3 risk factors probable htn, prior VT, obesity) - NATTY score: 2 - hstrop x1: 13. will trend - goal K 4.0, Mg 2.0, replete as needed - prn SL nitro if chest pain; will monitor - consult cardiology - TTE - check BNP, fasting lipids, a1c (2) History of heart attack: Plan: - reportedly had VT in 2007 in context of sinus surgery at [facility] and adverse reaction to anesthetic and epinephrine. states was told had vasospasm that led to VT - since then, has had chronic intermittent angina, took prn nitro regularly, but stopped after syncopal episode (3) Chronic venous stasis: Plan: - 2+ bilat pitting edema noted. checking BNP and echo. no crackles on lung auscultation (4) BRAYDON on CPAP: Plan: - started cpap a month ago - continue qhs cpap (5) Asthma: Plan: - controlled, continue home regimen (6) Depression: Plan: - continue home regimen - states Xanax very regular regularly. (7) Colostomy in place: Plan: - routine care Plan FEN/GI: h/h low Na. no maintenance IV fluids ppx: sq heparin code: full dispo: med tele History of Present Illness Chief Complaint: chest pain Primary Care Provider: Roopa Arteaga 57 y/o female w/ obesity, asthma, braydon, colostomy, and hx of previous VT who presents w/ 4 days of nonradiating exertional midsternal chest pain. Onset was w/ exertion, while walking. She described a fluttering sensation w/ palpitations. She tried to persist through it and kept walking briskly. It felt sharp. Pain worsened and felt heaviness. She had similar symptoms, but without exertion (worse w/ exertion) during the weekend. Last 4-6 months, when walking feels fluttering midsternal, resolves after rest. Denies diaphoresis or radiation of the pain. No emesis. Does endorse more sedentary lifestyle in past few years. Takes low dose Adderall (~5mg prn) partly for excessive daytime sleepiness. Has had elevated bp readings; states started since Adderall several years ago. Takes estradiol for menopausal symptoms.Endorses recent increased stress and work and financial stresses. Lives w/ elderly mother. Denies hx VTE. Does have chronic bilateral ankle swelling x4-5 years. New mild dyspnea x several days. Follows [facility] and has had workup for MS, but states was neg for MS on LP. 2019 had colostomy placed for perfed diverticulitis. Never tobacco. Denies hx of early VT in family. Denies hx of diabetes. Occupation: desk job. ED course: 325mg aspirin chew cbc, coags, cmp reviewed. K 3.5. bp 174/104x1. hxtrop 13.0. cxr w/o acute. ecg w/ borderline LAD Allergies Allergy/AdvReac Type Severity Reaction Status Date / Time codeine Allergy Intermediate n/v Verified 03/23/22 22:01 lactose Allergy Intermediate ABDOMINAL Verified 03/23/22 22:01 PAIN, DIARRHEA meperidine Allergy Intermediate n/v Verified 03/23/22 22:01 phenobarbital Allergy Mild unknown Verified 03/23/22 22:01 Home Medications Medication Instructions Recorded Confirmed Type venlafaxine 75 mg tablet 75 mg PO QAM #90 caps 03/31/19 03/23/22 Rx albuterol sulfate 90 mcg/actuation 2 puff inhalation Q6H PRN sob #8.5 06/29/19 03/23/22 Rx aerosol inhaler grams nitroglycerin 0.4 mg sublingual 0.4 mg sublingual DIRECTED PRN 06/29/19 03/23/22 Rx tablet Chest Pain #30 tabs omeprazole 20 mg tablet,delayed 20 mg PO QAM #90 caps 06/29/19 03/23/22 Rx release meclizine 25 mg tablet 25 mg PO DIRECTED PRN Dizziness 11/07/19 03/23/22 Rx #30 tabs estradiol 1 mg tablet 1 mg PO DAILY #90 tabs 12/24/21 03/23/22 Rx acetaminophen 500 mg tablet 1,000 mg PO Q12H 10/17/22 10/17/22 History (Tylenol Extra Strength) alprazolam 0.25 mg tablet 0.25 mg PO TID PRN Anxiety 03/23/22 03/23/22 History ammonium lactate 12 % lotion 1 applic topical DAILY 03/23/22 03/23/22 History buspirone 10 mg tablet 10 mg PO TID 03/23/22 03/23/22 History dextroamphetamine-amphetamine 20 20 mg PO DAILY 03/23/22 03/23/22 History mg tablet fluticasone 500 mcg-salmeterol 50 1 inh inhalation BID 03/23/22 03/23/22 History mcg/dose blistr powdr for inhalation (Advair Diskus) hydrocortisone 2.5 % topical cream 1 applic topical BID PRN ITCHY 03/23/22 03/23/22 History AREAS loratadine 10 mg tablet (Claritin) 10 mg PO DAILY PRN Allergy Symptoms 03/23/22 03/23/22 History omega 9-itp-pzg-fish oil 1,000 mg 1 cap PO DAILY 03/23/22 03/23/22 History (120 mg-180 mg) capsule (Fish Oil) ondansetron HCl 4 mg tablet 4 mg PO Q8H PRN NAUSEA/VOMITING 03/23/22 03/23/22 History Past Med/Surg History Medical History Asthma Well controlled. Managed with advair + montelukast Chronic venous stasis B/l ankle edema L>R. DANIELLE (04/24) negative for DVT w/ confirmation of L popliteal cyst. Arterial duplex (06/24) normal. Wearing compression stockings Colostomy in place Demyelinating disorder Variant of multiple sclerosis followed by neurology at [facility]. Mild cognitive difficulty. Depression Followed by psych (Dr. Osborn) and is currently managed with venlafaxine + alprazolam + adderall Endometriosis Heart attack History of diverticulitis Hospitalization in [place] (12/21) for sigmoid diverticulitis. History of heart attack Vulvitis Vulvovaginitis Surgical History History of myringotomy History of sinus surgery S/P cholecystectomy S/P hysterectomy S/P tonsillectomy and adenoidectomy Family History Mother Breast cancer Chondrosarcoma L Shoulder Denies family history of Colon cancer Ovarian cancer Prostate cancer Myocardial infarction Social History Smoking Status: Never smoker Hx Alcohol Use: No Hx Substance Use: No Preferred Language: Yakut Visual Impairment: No Limitations Hearing Ability: Normal marital status: single Current Living Situation: Family current occupational status: employed Feels Safe at Home: Yes Childhood Exposure to Second-Hand Smoke: Yes Seatbelt Use: always Sunscreen Use: Yes Review of Systems Review of Systems: All systems reviewed & are unremarkable except as noted in HPI & below Physical Exam Physical Exam: General: Grossly A&O. NAD. Cooperative. Obese habitus. HEENT: Atraumatic, normocephalic. EOMI Pulm: CTAB. -wheezes, -rales, -rhonchi. No respiratory distress. Cardiac: RRR, -mrg. 2+ BLE Abdominal: Nontender, nondistended, soft. Integ: Warm, dry, intact Results & Data Results & Data ([facility]) Vital Signs (Past 12 Hours) Vital Signs Temp Pulse Resp BP Pulse Ox O2 Del Method 03/23/22 16:37 36.8 C 89 18 174/104 H 97 Room Air Laboratory Results Cardiac Enzymes 03/23/22 Range/Units 16:55 AST 25 (13-39) U/L Troponin I High Sens 13.0 (0-14) pg/ml Coagulation 03/23/22 Range/Units 16:55 PT 10.8 (9.0-12.0) Seconds APTT 24.0 (21.0-31.0) Seconds CBC 03/23/22 Range/Units 16:55 WBC 8.47 (4.8-10.8) K/ul RBC 4.23 (3.93-5.22) M/uL Hgb 13.1 (12.0-16.0) g/dl Hct 38.2 (34.1-44.9) % Plt Count 217 (130-400) K/uL Neut # (Auto) 5.16 (1.4-6.5) K/uL Lymph # (Auto) 2.47 (1.2-3.4) K/uL [place] # (Auto) 0.63 (0.24-0.82) K/uL Eos # (Auto) 0.13 (0-0.50) K/uL Baso # (Auto) 0.05 (0-0.2) K/uL Comprehensive Metabolic Panel 03/23/22 Range/Units 16:55 Sodium 139 (136-145) mmol/L Potassium 3.5 (3.5-5.1) mmol/L Chloride 104 (98-107) mmol/L Carbon Dioxide 27 (21-32) mmol/L BUN 13 (6-23) mg/dl Creatinine 0.85 (0.6-1.2) mg/dl Glucose 117 H (70-99(Fasting)) mg/dl Calcium 9.1 (8.5-10.1) mg/dl AST 25 (13-39) U/L ALT 19 (7-52) U/L Alkaline Phosphatase 93 (34-104) U/L Total Protein 6.6 (6.0-8.3) gm/dl Albumin 3.9 (3.4-5.0) gm/dl Intake and Output 03/23/22 03/23/22 03/23/22 06:59 14:59 22:59 Other: Weight 108.5 kg Weight Measurement Method Chair Scale Patient Weight 03/24/22 06:59 Weight 108.5 kg Diagnostic Findings Chest X-Ray 03/23/22 16:39 SINGLE VIEW CHEST CLINICAL HISTORY: Atypical chest pain. FINDINGS: 2 AP, portable, upright chest radiographs are compared to study dated 03/08/2019 and correlated with chest CT dated 03/24/2019. The cardiomediastinal silhouette is unremarkable. There are tiny calcified granulomas. The lungs and pleural spaces are otherwise clear. No pneumothorax is seen. The bony thorax is grossly intact. IMPRESSION: No active disease in the chest. ACT 112: Negative or not required by law. Electronically signed by: Rafael Bell M.D. 03/23/2022 5:54 PM Code Status & VTE Plan Code Status full VTE Prophylaxis Plan VTE Prophylaxis will be ordered: Yes Supervising Physician Co-Signing Physician Notes Patient seen and examined, chart reviewed, case discussed with Dr. Wasserman and I agree with his assessment and plan as documented above. In brief, patient is a 57-year-old female presenting with exertional chest pain ongoing for the last 4 days. Patient has history of hypertension, prior VT as well as obesity with BMI of 36.4. EKG with nonspecific changes. Troponin x1 within normal limits at 13 On exam patient is resting comfortably, no acute distress Skinwarm, dry, intact HEENTmoist mucous membranes, neck supple, no JVD Heart+ S1, S2, regular, no murmur/rub/gallops, no reproducible chest pain on exam Lungsequal air entry bilaterally, no wheeze rales or rhonchi Abdomenpositive bowel sounds, soft, nontender, nondistended Extremities+ edema, warm, well-perfused Labs and images reviewed Assessment/[id number] female presenting with 4 days of exertional chest pain. Risk factors include age, history of hypertension, prior VT (thought to be secondary to coronary vasospasm) Trend troponin Telemetry monitoring Check 2D echo Remainder of plan as above Resident Activity Tracking Resident Involvement: Resident Care Provided Care Provided: Adult Hospital Medicine (1) Asthma Asthma complication type: with acute exacerbation Asthma persistence: intermittent Asthma severity: mild Qualified Code(s): J45.21 - Mild intermittent asthma with (acute) exacerbation
[2022-03-23] MEDS ORDERED: busPIRone 5 MG TAB PO STA (22:50)
[2022-03-24] MEDS ORDERED: ALBUTEROL HFA 8 GM INHALER INH PRN (00:13)
[2022-03-24] MEDS ORDERED: ACETAMINOPHEN 500 MG TAB PO PRN (00:13)
[2022-03-24 00:29] LABS: Troponin I High Sensitivity 11.2 pg/ml (0-14)
[2022-03-24 00:51] LABS: BUN Creatinine Ratio 16.9 (10-20); Calcium 8.9 mg/dl (8.5-10.1); Creatinine Clr Calc Pharmacy 92.2 ml/min; Est GFR (African American) 84.6 ml/min; Potassium 3.8 mmol/L (3.5-5.1)
--- NOTE | 2022-03-24 02:06 | Billing Data ---
Date of Service March 23, 2022 Coding Level of Care Code INT OBSERVATION CARE 50M LVL 2
[2022-03-24] MEDS: NITROGLYCERIN SL 0.4 MG/TAB TAB SL PRN ×2 (02:34→06:49)
[2022-03-24 07:58] LABS: Basophils # (auto) 0.06 K/uL (0-0.2); Basophils % (auto) 0.8 %; Eosinophils # (auto) 0.11 K/uL (0-0.50); Eosinophils % (auto) 1.5 %; Hematocrit (blood only) 35.3 % (34.1-44.9); Hemoglobin 11.9 g/dl (12.0-16.0); Immature Granulocytes # (auto) 0.03 K/uL (0.00-0.02); Immature Granulocytes % (auto) 0.4 %; Lymphocytes # (auto) 2.15 K/uL (1.2-3.4); Lymphocytes % (auto) 29.5 %; Mean Corpuscular Hemoglobin 30.6 pg (25.0-34.0); Mean Corpuscular Hgb Conc 33.7 g/dL (32.0-36.0); Mean Corpuscular Volume 90.7 fL (80.0-100.0); Mean Platelet Volume 10.2 fL (9.4-12.3); Monocytes % (auto) 6.9 %; Neutrophils # (auto) 4.43 K/uL (1.4-6.5); Neutrophils % (auto) 60.9 %; Platelet Count 203 K/uL (130-400); RDW Coefficient of Variation 12.3 % (11.5-14.5); RDW Standard Deviation 40.5 fL (36.4-46.3); Red Blood Count 3.89 M/uL (3.93-5.22); White Blood Count 7.28 K/ul (4.8-10.8)
[2022-03-24] MEDS: busPIRone 5 MG TAB PO SCH ×2 (08:21→13:44)
[2022-03-24 08:23] LABS: Albumin Globulin Ratio 1.4 (0.9-2); Albumin Level 3.4 gm/dl (3.4-5.0); BUN Creatinine Ratio 17.3 (10-20); Bilirubin,Total 0.6 mg/dl (0.2-1.0); Calcium 8.6 mg/dl (8.5-10.1); Est GFR (African American) 94.8 ml/min; Est GFR (Non-African American) 81.8 ml/min; Globulin 2.4 gm/dl (2.5-4.0); Potassium 3.6 mmol/L (3.5-5.1); Total Protein 5.8 gm/dl (6.0-8.3)
[2022-03-24] MEDS ORDERED: VENLAFAXINE HCL XR 75 MG CAPXR PO SCH (09:00)
[2022-03-24] MEDS ORDERED: FLUTICASONE/VILANTEROL 200/25MCG 14 PUFFS/INHALER INH SCH (09:00)
[2022-03-24 10:16] LABS: Estimated Average Glucose 114 mg/dl; Hemoglobin A1C 5.6 % (4.5-5.6)
--- NOTE | 2022-03-24 11:08 | XCELERA ---
[id number]
--- NOTE | 2022-03-24 12:22 | Cardiology Consultation ---
Date of Consultation March 24, 2022 Assessment & Plan (1) Chest pain: (2) Stress-induced cardiomyopathy: (3) HTN (hypertension): (4) Asthma: (5) Chronic venous stasis: Plan 57-year-old woman with remote history of stress-induced cardiomyopathy (2007) who had normal coronary arteries at that time, notes atypical chest pain (lasting for days) with negative enzymes and ECG. Although she did not achieve 85% maximum predicted heart rate, the absence of any evidence of myocardial ischemia at fatiguing workload and reasonably high heart rate (78% maximum predicted) weighs against any occlusive coronary artery disease. ECG, enzymes, and echocardiogram showed no indication of recurrent stress- induced cardiomyopathy. Suspect noncardiac etiology for her chest pain. BP was quite labile, unclear whether she should be on an antihypertensive since at times her blood pressure is low normal. Could consider low-dose beta-cathleen to reduce risk of recurrent stress-induced cardiomyopathy as well as to reduce her sense of tachypalpitations with activity. However since she has gone 14 years without a recurrence of cardiomyopathy off beta-blockers, not likely essential that she be on a beta-cathleen. She is also concerned about intermittent leg edema, did educate her on the importance of low-salt/sodium diet, could also consider Dyazide 37.5/25 mg every other day for both BP and edema. Okay for discharge, no further cardiac work-up at this time. History of Present Illness Reason for Consultation: chest pain workup Requesting Physician: Marcos Whitlock MD Attending Physician: Marcos Whitlock MD History of Present Illness 57-year-old woman with history of stress-induced cardiomyopathy/Takotsubo syndrome 2007 (normal coronaries at cath) who was admitted 03/23/2022 with fatigue and chest discomfort lasting for several days, cardiac enzymes and ECG benign. At baseline, she can use a push mower without any chest discomfort, although she does note that her heart is "pounding" when she performs physical activity. She does not routinely exercise. She does note chronic leg edema and has a history of venous insufficiency. No orthopnea or PND. Does feel tachypalpitations with activity, but no subjective palpitations otherwise. She had not been having any chest discomfort, but after she was late for work last Wednesday she had an episode of moderate severity chest discomfort lasting for few hours, followed by a residual vague milder chest discomfort and sense of fatigue lasting through the weekend and prompting evaluation/admission. She underwent a stress echocardiogram this morning, although this was nondiagnostic due to failure to achieve target heart rate, she had no evidence of myocardial ischemia at fatiguing workload and 78% maximum predicted heart rate. Resting echocardiogram was unremarkable and all thomas augmented a ppropriately, no chest pain noted, no ECG changes. At the time of my evaluation, she was comfortable and had no somatic complaints. Allergies Allergy/AdvReac Type Severity Reaction Status Date / Time codeine Allergy Intermediate n/v Verified 03/23/22 22:01 lactose Allergy Intermediate ABDOMINAL Verified 03/23/22 22:01 PAIN, DIARRHEA meperidine Allergy Intermediate n/v Verified 03/23/22 22:01 phenobarbital Allergy Mild unknown Verified 03/23/22 22:01 Home Medications Medication Instructions Recorded Confirmed Type venlafaxine 75 mg tablet 75 mg PO QAM #90 caps 03/31/19 03/23/22 Rx albuterol sulfate 90 mcg/actuation 2 puff inhalation Q6H PRN sob #8.5 06/29/19 03/23/22 Rx aerosol inhaler grams nitroglycerin 0.4 mg sublingual 0.4 mg sublingual DIRECTED PRN 06/29/19 03/23/22 Rx tablet Chest Pain #30 tabs omeprazole 20 mg tablet,delayed 20 mg PO QAM #90 caps 06/29/19 03/23/22 Rx release meclizine 25 mg tablet 25 mg PO DIRECTED PRN Dizziness 11/07/19 03/23/22 Rx #30 tabs estradiol 1 mg tablet 1 mg PO DAILY #90 tabs 12/24/21 03/23/22 Rx acetaminophen 500 mg tablet 1,000 mg PO Q12H 03/23/22 03/23/22 History (Tylenol Extra Strength) alprazolam 0.25 mg tablet 0.25 mg PO TID PRN Anxiety 03/23/22 03/23/22 History ammonium lactate 12 % lotion 1 applic topical DAILY 03/23/22 03/23/22 History buspirone 10 mg tablet 10 mg PO TID 03/23/22 03/23/22 History dextroamphetamine-amphetamine 20 20 mg PO DAILY 03/23/22 03/23/22 History mg tablet fluticasone 500 mcg-salmeterol 50 1 inh inhalation BID 03/23/22 03/23/22 History mcg/dose blistr powdr for inhalation (Advair Diskus) hydrocortisone 2.5 % topical cream 1 applic topical BID PRN ITCHY 03/23/22 03/23/22 History AREAS loratadine 10 mg tablet (Claritin) 10 mg PO DAILY PRN Allergy Symptoms 03/23/22 03/23/22 History omega 3-ojq-uel-fish oil 1,000 mg 1 cap PO DAILY 03/23/22 03/23/22 History (120 mg-180 mg) capsule (Fish Oil) ondansetron HCl 4 mg tablet 4 mg PO Q8H PRN NAUSEA/VOMITING 03/23/22 03/23/22 History Patient History Medical History (Updated 03/24/22 @ 12:44 by Noah Muñoz MD) Abnormal brain CT Asthma Well controlled. Managed with advair + montelukast Chronic venous stasis B/l ankle edema L>R. DANIELLE (04/24) negative for DVT w/ confirmation of L popliteal cyst. Arterial duplex (06/24) normal. Wearing compression stockings Chronic venous stasis Colostomy in place Demyelinating disorder Variant of multiple sclerosis followed by neurology at [place]. Mild cognitive difficulty. Demyelinating disorder Depression Followed by psych (Dr. Osborn) and is currently managed with venlafaxine + alprazolam + adderall Dyslipidemia Edema Endometriosis Fibula fracture Gastroesophageal reflux disease History of diverticulitis Hospitalization in [place] (12/21) for sigmoid diverticulitis. History of nephrolithiasis Eucalcemic hyperparathyroidism, followed at [place] Hyperparathyroidism Hypertension Irritable bowel syndrome Monteiro neuroma Nephrolithiasis Obesity, Class I, BMI 30-34.9 Stress incontinence in female Stress-induced cardiomyopathy (2007) Vitamin D deficiency Vulvitis Vulvovaginitis Surgical History (Updated 03/24/22 @ 12:44 by Noah Muñoz MD) History of myringotomy History of sinus surgery S/P cholecystectomy S/P hysterectomy S/P tonsillectomy and adenoidectomy Family History Mother Breast cancer Chondrosarcoma L Shoulder Denies family history of Colon cancer Ovarian cancer Prostate cancer Myocardial infarction Social History Smoking Status: Never smoker Hx Alcohol Use: No Hx Substance Use: No Preferred Language: Kinyarwanda Communication Ability: Effective Visual Impairment: No Limitations Hearing Ability: Normal Public Health Training Assistant Required: No Beliefs That Will Affect Care: None marital status: single Current Living Situation: Family current occupational status: employed Other Information That Helps Us Care for You: No Feels Safe at Home: Yes Childhood Exposure to Second-Hand Smoke: Yes Seatbelt Use: always Sunscreen Use: Yes Assistive Devices: None Physical Exam Physical Exam: Mildly obese adult white female in no distress. BP variable, ranging from low normal to moderately hypertensive. Pulse 78 bpm and regular. Skin: no ecchymoses or generalized lesions. HEENT: unremarkable. Neck: Jugular venous pulse minimally elevated, no carotid bruits. Lungs: clear. Cardiac: regular rhythm, normal S1 and S2, no murmur or gallop. Abdomen: benign. Extremities: Trace pretibial edema, pulses intact. Neurologic: normal affect, nonfocal. Results & Data ([facility]) Laboratory Results High-sensitivity troponin negative x2 (13 or less). Normal electrolytes, BUN 14, creatinine 0.81. Diagnostic Findings ECG showed sinus rhythm with voltage for LVH, otherwise unremarkable, no ST abnormalities. Repeat ECG unchanged. Chest x-ray unremarkable. Echocardiogram and stress echo as noted in HPI. PG Care Time/CCT Total # of Minutes Spent Total Time Spent with Patient: Total time spent is greater than 50% in coordination of care (as documented) at patient's floor/unit and/or counseling patient: Coding Level of Care Code 11887 Inpt Consult Level 4 Diagnoses Chest pain R07.9 Stress-induced cardiomyopathy I51.81 HTN (hypertension) I10 Asthma J45.21 Asthma severity: mild Asthma persistence: intermittent Asthma complication type: with acute exacerbation Chronic venous stasis I87.8 (1) Asthma Asthma severity: mild Asthma persistence: intermittent Asthma complication t ype: with acute exacerbation Qualified Code(s): J45.21 - Mild intermittent asthma with (acute) exacerbation
--- NOTE | 2022-03-24 12:25 | XCELERA ---
[id number]
--- NOTE | 2022-03-24 14:12 | Discharge Summary ---
Date of Service March 24, 2022 Admission HPI Per Admitting Provider 57 y/o female w/ obesity, asthma, braydon, colostomy, and hx of previous SC who presents w/ 4 days of nonradiating exertional midsternal chest pain. Onset was w/ exertion, while walking. She described a fluttering sensation w/ palpitations. She tried to persist through it and kept walking briskly. It felt sharp. Pain worsened and felt heaviness. She had similar symptoms, but without exertion (worse w/ exertion) during the weekend. Last 4-6 months, when walking feels fluttering midsternal, resolves after rest. Denies diaphoresis or radiation of the pain. No emesis. Does endorse more sedentary lifestyle in past few years. Takes low dose Adderall (~5mg prn) partly for excessive daytime sleepiness. Has had elevated bp readings; states started since Adderall several years ago. Takes estradiol for menopausal symptoms.Endorses recent increased stress and work and financial stresses. Lives w/ elderly mother. Denies hx VTE. Does have chronic bilateral ankle swelling x4-5 years. New mild dyspnea x several days. Follows [facility] and has had workup for MS, but states was neg for MS on LP. 2019 had colostomy placed for perfed diverticulitis. Never tobacco. Denies hx of early SC in family. Denies hx of diabetes. Occupation: desk job. ED course: 325mg aspirin chew cbc, coags, cmp reviewed. K 3.5. bp 174/104x1. hxtrop 13.0. cxr w/o acute. ecg w/ borderline LAD Principal Diagnosis Noncardiac chest pain Sensation of palpitation Discharge Exam The patient appeared stable Vital signs as documented. Lungs are clear to auscultation and appear unlabored Cardiac exam, Rhythm is regular.. No murmurs, rubs or gallops. Abdominal exam reveals normal bowel sounds, soft non tender, no masses Extremities are nonedematous and both pedal pulses are normal. Neurologic exam is alert and oriented, no focal loss of strength or sensation Skin is without bruises or rashes Psychologically is without concerns for anxiety or depression. Discharge Data Allergies Allergy/AdvReac Type Severity Reaction Status Date / Time codeine Allergy Intermediate n/v Verified 03/23/22 22:01 lactose Allergy Intermediate ABDOMINAL Verified 03/23/22 22:01 PAIN, DIARRHEA meperidine Allergy Intermediate n/v Verified 03/23/22 22:01 phenobarbital Allergy Mild unknown Verified 03/23/22 22:01 Consultations 03/23/22 20:30 ED Decision to Admit Stat 03/24/22 08:00 Consult Cardiology Routine Hospital Course (1) Chest pain: 57 y/o female w/ obesity, asthma, braydon, colostomy, and hx of previous SC who presents w/ 4 days of nonradiating exertional midsternal chest pain. - concern for cardiac chest pain given hx of SC and exertional symptoms. lower suspicion for infectious etiology - Adderall and estradiol use noted -Patient underwent stress echocardiogram on 03/24/2022 results from cardiology are as follows. Nondiagnostic stress echocardiogram due to failure to achieve target heart rate however no evidence of myocardial ischemia and fatiguing at the workload and 70% maximum predicted heart rate. Negative EKG portion of exercise treadmill test at submaximal heart rate. No chest pain test terminated due to fatigue and leg discomfort. Poor exercise tolerance patient only walked 2 minutes on a Pj protocol. Normal resting echocardiogram all thomas augmented appropriately post exercise Cardiology recommendations that the patient can be discharged, patient had labile blood pressure here while in hospital however her blood pressure was 106/76 and no new antihypertensives were started. Patient did talk about some sensations of tachyarrhythmia however she does take dextroamphetamine. She is recommended to stop this medication. If her outpatient provider wishes she can be referred for a multi day event monitor. There is no apparent arrhythmias noted while she was on the monitor at the hospital. (2) History of heart attack: - reportedly had SC in 2007 in context of sinus surgery at [facility] and adverse reaction to anesthetic and epinephrine. states was told had vasospasm that led to SC - since then, has had chronic intermittent angina, patient felt that her n itroglycerin was out of date she was given a new prescription for nitroglycerin at time of discharge (3) Chronic venous stasis: - With the patient's elevated BMI she may be at risk for sleep apnea. This could be a part in her lower extremity edema. Once again referral to outpatient for weight loss management and to follow-up on her CPAP use (4) BRAYDON on CPAP: - started cpap a month ago - continue qhs cpap (5) Asthma: - controlled, continue home regimen (6) Depression: - continue home regimen -With her Xanax use the patient may benefit from for them or psychiatric counseling and medication management Plan code: full Total Time Total Time Spent Total Time Spent (In Minutes): It required greater than 30 minutes to prepare this patient for discharge Discharge Plan Discharge Items Patient Disposition: Home - Self-Care Reason For Visit: CHEST PAIN Discharge Diagnosis: non cardiac chest pain negative stress test Activity: Resume your previous activity Non-emergency contact: Primary Care Provider Call non-emergency contact if: your symptoms worsen Follow-up/Referrals: Roopa Arteaga [Primary Care Provider] - Diet: Regular Addtl Attending Provider Instructions: Good news! Your stress test was unremarkable as well as your blood test for any heart related damage injury or stress. As we discussed during our visit in the bedside you may consider an outpatient java front end web developer if you feel you are having recurrent fluttering or palpitations in your chest. This can be accomplished by referral from your primary care or having an outpatient cardiology visit to discuss further. With the complaints of fluttering in your chest it would be recommended that you discontinue your dextroamphetamine/amphetamine treatment At this time due to your history of vasospasm I will prescribe you some nitroglycerin to use on a as needed basis, if you do need to use it I would recommend that you seek medical attention if it does not relieve her discomfort but if it does relieve her discomfort to the next appropriate time call your primary care for follow-up to discuss your issues Pending Studies at Discharge: No Stand-Alone Forms: My [facility] [place] [employer], Smoking Cessation Medications and DC Order Prescriptions: Continued meclizine 25 mg tablet 25 mg PO DIRECTED PRN (Reason: Dizziness) Qty: 30 0RF venlafaxine 75 mg tablet 75 mg PO QAM Qty: 90 1RF albuterol sulfate 90 mcg/actuation HFA aerosol inhaler 2 puff INHALATION Q6H PRN (Reason: sob) Qty: 8.5 5RF omeprazole 20 mg tablet,delayed release (DR/EC) 20 mg PO QAM Qty: 90 1RF estradiol 1 mg tablet 1 mg PO DAILY Qty: 90 3RF ammonium lactate 12 % Lotion 1 applic TOPICAL DAILY ondansetron HCl [Zofran] 4 mg Tablet 4 mg PO Q8H PRN (Reason: NAUSEA/VOMITING) acetaminophen [Tylenol Extra Strength] 500 mg Tablet 1,000 mg PO Q12H alprazolam 0.25 mg Tablet 0.25 mg PO TID PRN (Reason: Anxiety) buspirone [BuSpar] 10 mg Tablet 10 mg PO TID fluticasone propion-salmeterol [Advair Diskus] 500-50 mcg/dose Blister With Device 1 inh INHALATION BID hydrocortisone 2.5 % Cream 1 applic TOPICAL BID PRN (Reason: ITCHY AREAS) loratadine [Claritin] 10 mg Tablet 10 mg PO DAILY PRN (Reason: Allergy Symptoms) omega 2-oob-dki-fish oil [Fish Oil] 1,000 mg (120 mg-180 mg) Capsule 1 cap PO DAILY nitroglycerin 0.4 mg tablet, sublingual 0.4 mg SL DIRECTED PRN (Reason: Chest Pain) Qty: 30 0RF Discontinued dextroamphetamine-amphetamine 20 mg Tablet 20 mg PO DAILY Discharge Orders: Discharge Order (Routine); Ordered 03/24/22 Ordered By: Marcos Whitlock Admission Data Admit Date/Time: 03/23/22 21:31 Attending Provider: Marcos Whitlock Admit Provider: Darian Wasserman Primary Care Provider: Roopa Arteaga Other Providers: Alexandra Osei ; Ranjith Paul Coding Level of Care Code D/C DAY MANAGEMENT >30 MINS Diagnoses Chest pain R07.9 History of heart attack I25.2 Chronic venous stasis I87.8 BRAYDON on CPAP G47.33; Z99.89 Asthma J45.21 Asthma severity: mild Asthma persistence: intermittent Asthma complication type: with acute exacerbation Depression F32.9
--- NOTE | 2022-03-24 14:18 | Electrocardiogram Report ---
Test Reason : Blood Pressure : / mmHG Vent. Rate : 082 BPM Atrial Rate : 082 BPM P-R Int : 154 ms QRS Dur : 098 ms QT Int : 376 ms P-R-T Axes : 035 -40 040 degrees QTc Int : 439 ms Normal sinus rhythm Left anterior fascicular block Moderate voltage criteria for LVH, may be normal variant Abnormal ECG When compared with ECG of 24-MAR-2019 00:03, No significant change was found Confirmed by Noah Muñoz ([id number]) on 03/24/2022 2:18:15 PM Referred By: Roopa Arteaga Confirmed By:Noah Muñoz
--- NOTE | 2022-03-24 14:40 | Electrocardiogram Report ---
Test Reason : Blood Pressure : / mmHG Vent. Rate : 076 BPM Atrial Rate : 076 BPM P-R Int : 162 ms QRS Dur : 098 ms QT Int : 414 ms P-R-T Axes : 033 -40 033 degrees QTc Int : 465 ms Normal sinus rhythm Left anterior fascicular block Abnormal ECG When compared with ECG of 23-MAR-2022 16:43, No significant change was found Confirmed by Noah Muñoz ([id number]) on 03/24/2022 2:39:31 PM Referred By: Roopa Arteaga Confirmed By:Noah Muñoz
== END 2022-03-24 16:05 | disposition home or self-care (01) ==
LOC: 2N 16:32 → ED 16:32 → SUATTDRO 21:31 → 2N 22:39
DX: G47.33 Obstructive sleep apnea (adult) (pediatric); J45.909 Unspecified asthma, uncomplicated; Z88.5 Allergy status to narcotic agent; I87.2 Venous insufficiency (chronic) (peripheral); Z79.899 Other long term (current) drug therapy; F32.A Depression, unspecified; I25.2 Old myocardial infarction; Z99.89 Dependence on other enabling machines and devices; R07.89 Other chest pain

== ENCOUNTER 2023-06-30 14:02 | Observation (INO) ==
--- NOTE | 2023-06-30 14:07 | ED Triage Note ---
Date of Service June 30, 2023 Provider in Triage Author: Malathi Murray. History of Present Illness This patient was briefly evaluated while in triage. An abbreviated physical exam was performed. This patient is a 58-year-old Female who presents to the ED for evaluation of flu like symptoms. Reports nausea and diarrhea, and lower abd pain x 1 week. Denies fevers, cough, chest pain, abd pain, urinary symptoms. Physical Exam Initial orders for labs and / or imaging were placed and patient was placed in the waiting area until a bed is available. Please see further documentation for the full ED course.
[2023-06-30 14:51] LABS: Hematocrit (blood only) 46.8 % (37.0-47.0); Hemoglobin 16.1 g/dl (12.0-16.0); Mean Corpuscular Hemoglobin 30.8 pg (25.0-34.0); Mean Corpuscular Hgb Conc 34.4 g/dL (32.0-36.0); Mean Corpuscular Volume 89.7 fL (80.0-100.0); Mean Platelet Volume 9.8 fL (9.4-12.4); Platelet Count 252 K/uL (130-400); RDW Coefficient of Variation 12.1 % (11.5-14.5); RDW Standard Deviation 39.9 fL (36.4-46.3); Red Blood Count 5.22 M/uL (4.20-5.40); White Blood Count 8.87 K/ul (4.8-10.8)
[2023-06-30 15:09] LABS: Albumin Globulin Ratio 1.4 (0.9-2); Albumin Level 4.8 gm/dl (3.4-5.0); BUN Creatinine Ratio 14.9 (10-20); Bilirubin,Total 0.7 mg/dl (0.2-1.0); Calcium 10.1 mg/dl (8.6-10.3); Creatinine Clr Calc Pharmacy 77.9 ml/min; Est GFR (African American) 72.1 ml/min; Est GFR (Non-African American) 62.2 ml/min; Globulin 3.5 gm/dl (2.5-4.0); Potassium 3.8 mmol/L (3.5-5.1); Total Protein 8.3 gm/dl (6.0-8.3)
[2023-06-30 15:38] LABS: Adenovirus PCR Not Detected (NotDetected); Bordetella parapertussis PCR Not Detected (NotDetected); Bordetella pertussis PCR Not Detected (NotDetected); Chlamydia pneumoniae PCR Not Detected (NotDetected); Coronavirus 229E PCR Not Detected (NotDetected); Coronavirus CoV-2 (COVID19)PCR Not Detected (NotDetected); Coronavirus HKU1 PCR Not Detected (NotDetected); Coronavirus NL63 PCR Not Detected (NotDetected); Coronavirus OC43PCR Not Detected (NotDetected); Human Metapneumovirus PCR Not Detected (NotDetected); Influenza A PCR Not Detected (NotDetected); Influenza B PCR Not Detected (NotDetected); Mycoplasma pneumoniae PCR Not Detected (NotDetected); Parainfluenza Virus 1 PCR Not Detected (NotDetected); Parainfluenza Virus 2 PCR Not Detected (NotDetected); Parainfluenza Virus 3 PCR Not Detected (NotDetected); Parainfluenza Virus 4 PCR Not Detected (NotDetected); Respiratory Syncytial VirusPCR Not Detected (NotDetected); Rhinovirus/Enterovirus PCR Not Detected (NotDetected)
[2023-06-30] MEDS ORDERED: OPTIRAY 320 500ml IV ONE (15:52)
[2023-06-30 16:23] LABS: Appearance Urine Cloudy (Clear); Bacteria Urine Automated Negative (Negative); Bilirubin Urine Negative (Negative); Blood Urine 2+ (Negative); Color Urine Dark Yellow; Epithelial Cell Urine Auto >30 /lpf (0-5); Glucose Urine UA Negative (Negative); Ketones Urine 1+ (Negative); Leukocyte Esterase Urine Negative (Negative); Nitrite Urine Negative (Negative); Protein Urine Trace (Negative); RBC Urine Automated >30 /hpf (0-4); Specific Gravity Urine 1.033 (1.000-1.030); Urobilinogen Urine Negative (Negative)
--- NOTE | 2023-06-30 16:33 | CT Scan Report ---
CT abd pelvis IV con only CLINICAL HISTORY: lower abd pain TECHNIQUE: Helical axial images of the abdomen and pelvis were obtained and displayed. Automated dose lowering techniques and/or adjustment according to patient size were utilized for this exam. This e xam was performed with intravenous contrast. CT DOSE: 1426.36 mGy.cm COMPARISON: Comparison is made to CT abdomen pelvis 12/11/2018 FINDINGS: Lower chest: Bronchiectasis is seen. Liver: Hepatic steatosis is noted. Gallbladder and biliary tree: Patient is status post cholecystectomy. No intra- or extrahepatic bilia ry ductal dilation. Pancreas: Fatty replacement of the pancreas is seen. Spleen: Unremarkable. Adrenals: Unremarkable. Kidneys and ureters: Nonobstructive nephrolithiasis is seen. Multiple cysts are seen. Bladder: Unremarkable. Reproductive organs: Unremarkable. Bowel: Status post partial colectomy with a diverging colostomy. The appendix is normal. Lymph nodes Retroperitoneal: Unremarkable. Pelvic: Unremarkable. Mesenteric: Unremarkable. Peritoneum: Normal. Vessels: Unremarkable. Abdominal wall: A parastomal hernia in the left lower quadrant contains only fat. Bones: Unremarkable. IMPRESSION: No acute abnormalities. Postsurgical changes of partial colectomy with a left lower quadrant colostom y. Additional findings as above. ACT 112: Negative or not required by law. Electronically signed by: Jhonathan Ross M.D. 06/30/2023 4:31 PM
--- NOTE | 2023-06-30 16:49 | XRay Report ---
XR chest 1V not portable HISTORY: 58 years-old Female FLS. KELSEA 1425 acute flulike symptoms COMPARISON: Chest radiograph 04/06/2023 TECHNIQUE: AP view of the chest FINDINGS: Cardiac mediastinal and hilar silhouettes are unchanged. There is no pneumothorax, pleural effusion o r airspace consolidation. The bones appear grossly intact. Mild upper thoracic levoscoliosis. IMPRESSION: No acute process. ACT 112: Negative or not required by law. The above report was generated using voice recognition software. It may contain grammatical, syntax o r spelling errors. Electronically signed by: Ariel Byrd M.D. 06/30/2023 4:47 PM
[2023-06-30] MEDS ORDERED: MECLIZINE HCL 25 MG TAB PO STA (17:46)
[2023-06-30] MEDS ORDERED: AMOXICILLIN/CLAVULANATE 875 MG TAB PO ONE (17:47)
[2023-06-30 18:04] LABS: Troponin I High Sensitivity 14.1 pg/ml (0-14)
--- NOTE | 2023-06-30 18:55 | Emergency Department Note ---
Impression & Plan Abdominal pain, Otitis media, Vertigo ED Provider Note NAME: ABBY ROBERTS AGE: 58 SEX: F : 1965 ARRIVES VIA: Walk-In INFORMANT: [Patient][, ] ED PROVIDER(S): [Sussy Gilmore MD] CHIEF COMPLAINT: Abdominal pain HPI: This is a 58-year-old female presenting for nausea, diarrhea and abdominal pain. Patient states that she has had congestion in her sinuses, ears for the past few days. She notes that she is also had loose stool in her colostomy. She notes she also had an episode of actual bowel movements rectally, small amount. She states that she feels somewhat dizzy when she turns her head to the right. She states she has had previous vertigo before including BPPV. She also notes that she is a previous ear infections and feels this is similar. She notes mild vertigo type symptoms. Otherwise no headache, previous strokes, chest pain, shortness of breath. ROS: See above HPI for pertinent positives & negatives. A total of [10] systems reviewed and were otherwise negative. PAST MEDICAL HISTORY: [See Below] PAST SURGICAL HISTORY: [See Below] FAMILY HISTORY: [See Below] SOCIAL HISTORY: [See Below] HOME MEDICATIONS: [See Below] ALLERGIES: [See Below] VITALS: See Below PHYSICAL EXAMINATION: General: resting comfortably in no acute distress Head: Normocephalic and atraumatic Eyes: Normal inspection, extraocular muscles intact Ear, nose, throat: Normal external exam, right TM bulging Neck: Normal range of motion Respiratory: lungs clear to auscultation bilaterally Cardiovascular: Regular rate/rhythm, no murmur GI: soft, nontender, no guarding or rebound Extremities: nontender, moves all extremities Neuro: The patient awake and alert, appropriately conversive, no focal deficits, symmetric faces, cranial nerves II to XII grossly intact, no motor drift Skin: Warm, dry, and intact MEDICAL DECISION MAKING: This is a 58-year-old female senting for nausea, diarrhea and abdominal pain. Patient had triage workup that included CT abdomen/pelvis and basic blood work -No anemia or leukocytosis, no significant electrolyte disturbance, isolated AST elevation, minimal -Urinalysis reveals blood/ketones without signs of UTI -Viral panel negative -CT abd/pelvis shows no acute process for patients current abd pain,n/v/d -Patient has right TM bulging/effusion -This could explain patient's current vertigo type symptom -I did discuss central versus peripheral process for vertigo and discussed CT/further stroke workup. Patient and mother are comfortable with discharge home with treatment for patient's otitis media/effusion. -Believe this is appropriate as patient has no clear neurologic deficits, only slight vertigo type symptoms, stable gait otherwise and no clear dysmetria, no nystagmus. - elevated trop, persisent nausea. Repeat is slightly higher. With persistent symptms, weakness, nausuea, will admit. Differential diagnosis: Viral process, BPPV, stroke, otitis media, ACS ER treatment provided: See below Diagnostics interpreted by me: ECG: ECG independently interpreted by me with [normal sinus rhythm], rate of 78, [normal [place]], [normal QTc], [no ST segment elevations consistent with STEMI criteria], left anterior fascicular block Cardiac Monitoring: An order was placed for continuous cardiac monitoring. The monitor shows a rate of 77 with sinus rhythm. Laboratory studies: [As stated above and show below.] Imaging studies: [See below.] Past Med/Surg History Medical History Neuropathy Obstructive sleep apnea on CPAP History of COVID-19 Takotsubo syndrome History of heart attack Hypertension Stress incontinence in female Obesity, Class I, BMI 30-34.9 Monteiro neuroma Irritable bowel syndrome Hyperparathyroidism Gastroesophageal reflux disease Dyslipidemia Abnormal brain CT Colostomy in place Asthma Depression History of nephrolithiasis Demyelinating disorder Chronic venous stasis History of diverticulitis Surgical History History of colon resection Hx of colonoscopy S/P cystoscopy with ureteral stent placement S/P myringotomy with insertion of tube S/P tonsillectomy and adenoidectomy S/P hysterectomy S/P cholecystectomy History of sinus surgery Family History Mother Breast cancer Chondrosarcoma L Shoulder Denies family history of Colon cancer Ovarian cancer Prostate cancer Myocardial infarction Social History Smoking Status: Never smoker Second Hand Exposure: Yes (hx as child); Do You Dip or Chew Tobacco: No; Hx Alcohol Use: No Hx Substance Use: No Preferred Language: Vietnamese Communication Ability: Effective Visual Impairment: No Limitations Hearing Ability: Normal Carriage Operator Required: No Beliefs That Will Affect Care: None marital status: single Current Living Situation: Parent current occupational status: employed Feels Safe at Home: Yes Safety Concerns: Feels Safe At This Time Childhood Exposure to Second-Hand Smoke: Yes Seatbelt Use: always Sunscreen Use: Yes Assistive Devices: Glasses Allergies Allergies Allergy/AdvReac Type Severity Reaction Status Date / Time codeine Allergy Intermediate Hives Verified 05/20/23 14:47 lactose Allergy Intermediate ABDOMINAL Verified 05/20/23 14:47 PAIN, DIARRHEA meperidine Allergy Intermediate n/v Verified 05/20/23 14:47 phenobarbital Allergy Mild Nausea Verified 05/20/23 14:47 Home Meds Home Medications Medication Instructions Recorded Confirmed fluticasone 500 mcg-salmeterol 50 1 inh inhalation BID 03/23/22 06/30/23 mcg/dose blistr powdr for inhalation (Advair Diskus) omega 4-kfg-avg-fish oil 1,000 mg 1 cap PO DAILY 03/23/22 06/30/23 (120 mg-180 mg) capsule (Fish Oil) dextroamphetamine-amphetamine 20 1 tab PO DAILY 03/30/23 06/30/23 mg tablet venlafaxine 37.5 mg tablet 37.5 mg PO HS 03/30/23 06/30/23 venlafaxine 75 mg tablet 75 mg PO HS 03/30/23 06/30/23 buspirone 15 mg tablet 15 mg PO TID 06/30/23 06/30/23 gabapentin 100 mg capsule 100 mg PO HS 06/30/23 06/30/23 ondansetron 4 mg disintegrating 4 mg PO Q8 PRN Nausea And Vomiting 06/30/23 06/30/23 tablet Previous Rx's Medication Instructions Recorded albuterol sulfate 90 mcg/actuation 2 puff inhalation Q6H PRN sob #8.5 06/29/19 aerosol inhaler grams omeprazole 20 mg tablet,delayed 20 mg PO QAM #90 caps 06/29/19 release nitroglycerin 0.4 mg sublingual 0.4 mg sublingual DIRECTED PRN 10/18/22 tablet Chest Pain #30 tabs estradiol 1 mg tablet 1 mg PO DAILY #90 tabs 07/27/22 estradiol 0.1 mg/24 hr weekly 1 patch topical .weekly #4 ea 05/20/23 transdermal patch amoxicillin 875 mg-potassium 1 tab PO BID #14 tabs 06/30/23 clavulanate 125 mg tablet meclizine 25 mg tablet 25 mg PO BID PRN dizziness #20 tabs 06/30/23 Results & Data (ED) Vital Signs Vital Signs - 24 hr 06/30/23 14:04 06/30/23 18:27 Temperature 36.3 C L Temperature Source Temporal Artery Scan Pulse Rate 111 H Pulse Rate [Finger] 77 Respiratory Rate 18 18 Respiratory Effort / Characteristics Non-Labored Spontaneous Respiratory Depth Normal Respiratory Pattern Regular Blood Pressure 185/113 H Blood Pressure [Right Arm] 186/100 H Blood Pressure Mean 137 Blood Pressure Mean [Right Arm] 128 Pulse Oximetry 97 98 Oxygen Delivery Method Room Air Room Air Sepsis Recent Fever Within 48 Hours No Sepsis New/Unexplained Change in Mental Status N/A Sepsis Action Taken by Nursing No Action Required Laboratory Data 07/01/23 04:17 07/01/23 04:17 Lab Results 06/30/23 06/30/23 06/30/23 Range/Units 14:36 16:16 19:21 WBC 8.87 (4.8-10.8) K/ul RBC 5.22 (4.20-5.40) M/uL Hgb 16.1 H (12.0-16.0) g/dl Hct 46.8 (37.0-47.0) % MCV 89.7 (80.0-100.0) fL MCH 30.8 (25.0-34.0) pg MCHC 34.4 (32.0-36.0) g/dL RDW Std Deviation 39.9 (36.4-46.3) fL RDW Coeff of Keisha 12.1 (11.5-14.5) % Plt Count 252 (130-400) K/uL MPV 9.8 (9.4-12.4) fL Sodium 140 (136-145) mmol/L Potassium 3.8 (3.5-5.1) mmol/L Chloride 103 (98-107) mmol/L Carbon Dioxide 29 (21-32) mmol/L Anion Gap 8 (3-11) BUN 15 (6-23) mg/dl Creatinine 1.01 (0.6-1.2) mg/dl Est Cr Clr Drug Dosing 77.9 ml/min Est GFR ( Amer) 72.1 ml/min Est GFR (Non-Af Amer) 62.2 ml/min BUN/Creatinine Ratio 14.9 (10-20) Glucose 102 H (70-99(Fasting)) mg/dl Calcium 10.1 (8.6-10.3) mg/dl Total Bilirubin 0.7 (0.2-1.0) mg/dl AST 48 H (13-39) U/L ALT 38 (7-52) U/L Alkaline Phosphatase 83 (34-104) U/L Troponin I High Sens 14.1 H 17.4 H (0-14) pg/ml Total Protein 8.3 (6.0-8.3) gm/dl Albumin 4.8 (3.4-5.0) gm/dl Globulin 3.5 (2.5-4.0) gm/dl Albumin/Globulin Ratio 1.4 (0.9-2) Lipase 15 (11-82) U/L Urine Color Dark Yellow Urine Appearance Cloudy A (Clear) Urine pH 6.0 (4.5-7.5) Ur Specific [place] 1.033 H (1.000-1.030) Urine Protein Trace H (Negative) Urine Glucose (UA) Negative (Negative) Urine Ketones 1+ H (Negative) Urine Blood 2+ H (Negative) Urine Nitrite Negative (Negative) Urine Bilirubin Negative (Negative) Urine Urobilinogen Negative (Negative) Ur Leukocyte Esterase Negative (Negative) Urine WBC (Auto) 1-5 (0-5) /hpf Urine RBC (Auto) >30 H (0-4) /hpf U Hyaline Cast (Auto) 5-10 H (0-5) /lpf U Epithel Cells (Auto) >30 H (0-5) /lpf Urine Bacteria (Auto) Negative (Negative) Adenovirus (PCR) Not Detected (NotDetected) B. pertussis DNA (PCR) Not Detected (NotDetected) B.parapertussis DNA PCR Not Detected (NotDetected) C. pneumoniae DNA (PCR) Not Detected (NotDetected) Coronavirus OC43 (PCR) Not Detected (NotDetected) Coronavirus HKU1 (PCR) Not Detected (NotDetected) Coronavirus 229E (PCR) Not Detected (NotDetected) SARS-CoV-2 (PCR) Not Detected (NotDetected) Coronavirus NL63 (PCR) Not Detected (NotDetected) Human Metapneumovir PCR Not Detected (NotDetected) Influenza Type A (PCR) Not Detected (NotDetected) Influenza Type B (PCR) Not Detected (NotDetected) M. pneumoniae (PCR) Not Detected (NotDetected) Parainfluenza 1 (PCR) Not Detected (NotDetected) Parainfluenza 2 (PCR) Not Detected (NotDetected) Parainfluenza 3 (PCR) Not Detected (NotDetected) Parainfluenza 4 (PCR) Not Detected (NotDetected) RSV (PCR) Not Detected (NotDetected) Entero/Rhino (PCR) Not Detected (NotDetected) Administered Medications Discontinued Medications Albuterol (Albuterol Hfa 8 Gm Inhaler) 2 puffs INH Q6R [facility] Stop: 07/30/23 21:59 Last Admin: 07/01/23 13:30 Dose: 2 puffs Documented By: Admin: 07/01/23 07:21 Dose: 2 puffs Documented By: Admin: 07/01/23 01:29 Dose: 2 puffs Documented By: Admin: 06/30/23 22:29 Dose: 2 puffs Documented By: HEIDI Amoxicillin/Clavulanate Potassium (Amoxicillin/Clavulanate 875 Mg Tab) 1 tab PO NOW ONE; Protocol Stop: 06/30/23 17:48 Last Admin: 06/30/23 18:22 Dose: 1 tab Documented By: SEAN Amoxicillin/Clavulanate Potassium (Amoxicillin/Clavulanate 875 Mg Tab) 1 tab PO BIDM [facility]; Protocol Stop: 07/08/23 11:29 Last Admin: 07/01/23 12:33 Dose: 1 tab Documented By: RAFFI Buspirone HCl (Buspirone 7.5 Mg Tab) 15 mg PO TID [facility] Stop: 07/31/23 08:59 Last Admin: 07/01/23 09:34 Dose: 15 mg Documented By: RAFFI Fluticasone Propionate (Fluticasone Propionate Na Spr 16 Gm Btl) 2 sprays NA BID [facility] Stop: 07/31/23 11:44 Last Admin: 07/01/23 14:43 Dose: 2 sprays Documented By: RAFFI Fluticasone/Vilanterol (Fluticasone/Vilanterol 200/25mcg 14 Puffs/Inhaler) 1 puffs INH DAILY [facility] Stop: 07/31/23 08:59 Last Admin: 07/01/23 09:34 Dose: 1 puffs Documented By: RAFFI Lactated Ringer's (Lr) 1,000 mls @ 100 mls/hr IV .Q10H [facility] Stop: 07/30/23 21:59 Last Infusion: 07/01/23 11:58 Dose: Infused Documented By: Admin: 07/01/23 09:34 Dose: 100 mls/hr Documented By: Infusion: 07/01/23 08:29 Dose: Infused Documented By: Admin: 06/30/23 22:29 Dose: 100 mls/hr Documented By: HEIDI Ioversol (Optiray 320 500ml) 85 ml IV ONCE ONE Stop: 06/30/23 15:53 Last Admin: 06/30/23 15:52 Dose: 85 ml Documented By: NIDHI Loratadine (Loratadine 10 Mg Tab) 10 mg PO NOW ONE Stop: 06/30/23 21:49 Last Admin: 06/30/23 22:29 Dose: 10 mg Documented By: HEIDI Meclizine HCl (Meclizine Hcl 25 Mg Tab) 25 mg PO NOW STA Stop: 06/30/23 17:47 Last Admin: 06/30/23 18:22 Dose: 25 mg Documented By: SEAN Meclizine HCl (Meclizine Hcl 25 Mg Tab) 25 mg PO Q8H [facility] Stop: 07/31/23 11:59 Last Admin: 07/01/23 12:34 Dose: 25 mg Documented By: RAFFI Ondansetron HCl (Ondansetron Inj 2 Mg/Ml 2 Ml Vial) 4 mg IV NOW STA Stop: 06/30/23 21:49 Last Admin: 06/30/23 22:26 Dose: Not Given Documented By: HEIDI Pantoprazole Sodium (Pantoprazole 40 Mg Tab) 40 mg PO [facility] Stop: 07/31/23 08:59 Last Admin: 07/01/23 09:34 Dose: 40 mg Documented By: SLB Imaging Data Radiologist's Impression: Abdomen/Pelvis CT 06/30/23 14:08 CT abd pelvis IV con only CLINICAL HISTORY: lower abd pain TECHNIQUE: Helical axial images of the abdomen and pelvis were obtained and displayed. Automated dose lowering techniques and/or adjustment according to patient size were utilized for this exam. This exam was performed with intravenous contrast. CT DOSE: 1426.36 mGy.cm COMPARISON: Comparison is made to CT abdomen pelvis 12/11/2018 FINDINGS: Lower chest: Bronchiectasis is seen. Liver: Hepatic steatosis is noted. Gallbladder and biliary tree: Patient is status post cholecystectomy. No intra- or extrahepatic biliary ductal dilation. Pancreas: Fatty replacement of the pancreas is seen. Spleen: Unremarkable. Adrenals: Unremarkable. Kidneys and ureters: Nonobstructive nephrolithiasis is seen. Multiple cysts are seen. Bladder: Unremarkable. Reproductive organs: Unremarkable. Bowel: Status post partial colectomy with a diverging colostomy. The appendix is normal. Lymph nodes Retroperitoneal: Unremarkable. Pelvic: Unremarkable. Mesenteric: Unremarkable. Peritoneum: Normal. Vessels: Unremarkable. Abdominal wall: A parastomal hernia in the left lower quadrant contains only fat. Bones: Unremarkable. IMPRESSION: No acute abnormalities. Postsurgical changes of partial colectomy with a left lower quadrant colostomy. Additional findings as above. ACT 112: Negative or not required by law. Electronically signed by: Jhonathan Ross M.D. 06/30/2023 4:31 PM Chest X-Ray 06/30/23 14:08 XR chest 1V not portable HISTORY: 58 years-old Female FLS. [facility] 1425 acute flulike symptoms COMPARISON: Chest radiograph 04/06/2023 TECHNIQUE: AP view of the chest FINDINGS: Cardiac mediastinal and hilar silhouettes are unchanged. There is no pneumothorax, pleural effusion or airspace consolidation. The bones appear grossly intact. Mild upper thoracic levoscoliosis. IMPRESSION: No acute process. ACT 112: Negative or not required by law. The above report was generated using voice recognition software. It may contain grammatical, syntax or spelling errors. Electronically signed by: Ariel Byrd M.D. 06/30/2023 4:47 PM Discharge Plan Visit Data Chief Complaint: Flu Like Symptoms Stated Complaint: FLU LIKE SYMPTOMS, REF BY DOC ED Provider: Sussy Gilmore Discharge Problem: Abdominal pain, Otitis media, Vertigo Patient Disposition: Admitted As Inpatient Discharge Instructions Interventions: ED Discharge Assessment Last Done: 06/30/23 21:55
--- NOTE | 2023-06-30 20:31 | History & Physical Report ---
Date of Service June 30, 2023 Assessment & Plan (1) Vertigo: Plan: Pt is a 58 yo female with PMH of Takotsubo cardiomyopathy, HTN, hyperparathyroidism, GERD, asthma, depression, diverticulitis complicated by perforation resulting in colectomy/colostomy, and demyelinating disorder presenting to the ER d/t nausea and diarrhea for the past few days. Elevated trop - original trop 14.1, repeat 17.4; EKG w/o ST changes - pt denying chest pain, but does endorse a hx of prior PR in the setting of receiving epi for a sinus surgery - will trend trop to peak - echo pending Viral gastroenteritis - CTAP neg for infectious etiology - most likely cause of pt's nausea/diarrhea - treat symptomatically with IVF and medication PRN Eustachian tube dysfunction - s/p augmentin x1 in ED; no need for further antibiotics - most likely cause for her flare of vertigo in the setting of viral GI illness; continue meclizine 25 mg PRN - would recommend continuation of anti-histamine daily and possible addition of flonase Depression - continue home venlafaxine 112.5 mg nightly, buspirone 15mg TID GERD - continue omeprazole 20 mg daily or formulary equivalent Neuropathy - continue gabapentin 100 mg nightly Asthma - well controlled, no acute exacerbation - continue home advair and albuterol PRN Diet: heart healthy VTE ppx: deferred- possible d/c tomorrow? Code: full Dispo: med/tele (2) Depression: (3) Asthma: (4) Demyelinating disorder: (5) HTN (hypertension): (6) Eustachian tube dysfunction: (7) Viral gastroenteritis: History of Present Illness Chief Complaint: N/V Primary Care Provider: Claudy Melchor MD Pt is a 58 yo female with PMH of Takotsubo cardiomyopathy, HTN, hyperparathyroidism, GERD, asthma, depression, diverticulitis complicated by perforation resulting in colectomy/colostomy, and demyelinating disorder presenting to the ER d/t nausea and diarrhea for the past few days. Pt states that nausea, dizziness, and diarrhea started ~1 week ago. Over this time, she had continued symptoms. She denies chest pain and SOB. She does have a hx of asthma but has been using her inhalers at home and this has been stable. She also has a hx of PR in the setting of epinephrine usage during a sinus surgery. Her last incident of chest pain was around 1 year ago. In the ER, pt received meclizine 25 mg and augmentin x1. The meclizine did help her symptoms. Allergies Allergy/AdvReac Type Severity Reaction Status Date / Time codeine Allergy Intermediate Hives Verified 05/20/23 14:47 lactose Allergy Intermediate ABDOMINAL Verified 05/20/23 14:47 PAIN, DIARRHEA meperidine Allergy Intermediate n/v Verified 05/20/23 14:47 phenobarbital Allergy Mild Nausea Verified 05/20/23 14:47 Home Medications Medication Instructions Recorded Confirmed Type albuterol sulfate 90 mcg/actuation 2 puff inhalation Q6H PRN sob #8.5 06/29/19 06/30/23 Rx aerosol inhaler grams omeprazole 20 mg tablet,delayed 20 mg PO QAM #90 caps 06/29/19 06/30/23 Rx release fluticasone 500 mcg-salmeterol 50 1 inh inhalation BID 03/23/22 06/30/23 History mcg/dose blistr powdr for inhalation (Advair Diskus) omega 1-xfy-dwn-fish oil 1,000 mg 1 cap PO DAILY 03/23/22 06/30/23 History (120 mg-180 mg) capsule (Fish Oil) nitroglycerin 0.4 mg sublingual 0.4 mg sublingual DIRECTED PRN 03/24/22 06/30/23 Rx tablet Chest Pain #30 tabs estradiol 1 mg tablet 1 mg PO DAILY #90 tabs 07/27/22 06/30/23 Rx dextroamphetamine-amphetamine 20 1 tab PO DAILY 03/30/23 06/30/23 History mg tablet venlafaxine 37.5 mg tablet 37.5 mg PO HS 03/30/23 06/30/23 History venlafaxine 75 mg tablet 75 mg PO HS 03/30/23 06/30/23 History estradiol 0.1 mg/24 hr weekly 1 patch topical .weekly #4 ea 05/20/23 06/30/23 Rx transdermal patch amoxicillin 875 mg-potassium 1 tab PO BID #14 tabs 06/30/23 Rx clavulanate 125 mg tablet buspirone 15 mg tablet 15 mg PO TID 06/30/23 06/30/23 History gabapentin 100 mg capsule 100 mg PO HS 06/30/23 06/30/23 History meclizine 25 mg tablet 25 mg PO BID PRN dizziness #20 tabs 06/30/23 Rx ondansetron 4 mg disintegrating 4 mg PO Q8 PRN Nausea And Vomiting 06/30/23 06/30/23 History tablet Past Med/Surg History Medical History Neuropathy Obstructive sleep apnea on CPAP History of COVID-19 Takotsubo syndrome History of heart attack Hypertension Stress incontinence in female Obesity, Class I, BMI 30-34.9 Monteiro neuroma Irritable bowel syndrome Hyperparathyroidism Gastroesophageal reflux disease Dyslipidemia Abnormal brain CT Colostomy in place Asthma Depression History of nephrolithiasis Demyelinating disorder Chronic venous stasis History of diverticulitis Surgical History History of colon resection Hx of colonoscopy S/P cystoscopy with ureteral stent placement S/P myringotomy with insertion of tube S/P tonsillectomy and adenoidectomy S/P hysterectomy S/P cholecystectomy History of sinus surgery Family History Mother Breast cancer Chondrosarcoma L Shoulder Denies family history of Colon cancer Ovarian cancer Prostate cancer Myocardial infarction Social History Smoking Status: Never smoker Second Hand Exposure: Yes (hx as child); Do You Dip or Chew Tobacco: No; Hx Alcohol Use: No Hx Substance Use: No Preferred Language: Kuwaiti Communication Ability: Effective Visual Impairment: No Limitations Hearing Ability: Normal Global Logistics Analyst Required: No Beliefs That Will Affect Care: None marital status: single Current Living Situation: Parent current occupational status: employed Feels Safe at Home: Yes Safety Concerns: Feels Safe At This Time Childhood Exposure to Second-Hand Smoke: Yes Seatbelt Use: always Sunscreen Use: Yes Assistive Devices: Glasses Review of Systems Review of Systems: As per HPI Physical Exam Physical Exam: Constitutional: well appearing, no acute distress HEENT: normocephalic, no conjunctival injection, bilateral TM w/o signs of infection but bilateral serous effusions noted CV: RRR, no murmur, no LE edema Respiratory: CTA bilaterally. No rhonchi, wheezes, or crackles. No increased work of breathing GI: soft, nondistended, nontender, + bowel sounds MSK: no gross deformities noted Skin: warm, dry, no rashes Neuro: alert, oriented, no FND noted Psych: mood and affect congruent Results & Data Results & Data Vital Signs (Past 12 Hours) Vital Signs Temp Pulse Pulse Resp BP BP Pulse Ox 06/30/23 18:27 77 18 186/100 H 98 06/30/23 14:04 36.3 C L 111 H 18 185/113 H 97 O2 Del Method 06/30/23 18:27 Room Air 06/30/23 14:04 Room Air Supervising Physician Co-Signing Physician Notes Attending addendum: I have physically seen this patient, have supervised the medical residents activities, and agree with the H&P unless as otherwise noted. Assessment and Plan: Elevated troponin/Takotsubo cardiomyopathy history/hypertension- The patient will be admitted to telemetry for serial cardiac enzymes, serial EKG's, cardiac rhythm monitoring and a 2-D echocardiogram with Dopplers Troponin initially 14.1, with follow-up 17.4. Likely type II supply/demand mismatch May need to adjust dosage of dextro amphetamine-amphetamine use Viral gastroenteritis- CT abdomen/pelvis negative Treat symptomatically with IV fluids Asthma- Continue Advair routine, and a butyryl as needed Depression- Continue venlafaxine and buspirone Remaining orders and notations as noted Resident Activity Tracking Resident Involvement: Resident Care Provided Care Provided: Adult Hospital Medicine (3) Asthma Asthma complication type: with acute exacerbation Asthma persistence: intermittent Asthma severity: mild Qualified Code(s): J45.21 - Mild intermittent asthma with (acute) exacerbation
[2023-06-30] MEDS ORDERED: ACETAMINOPHEN 325 MG TAB PO PRN (21:04)
[2023-06-30] MEDS ORDERED: MECLIZINE HCL 25 MG TAB PO PRN (21:04)
[2023-06-30] MEDS ORDERED: MELATONIN 3 MG TAB PO PRN (21:04)
[2023-06-30] MEDS ORDERED: ONDANSETRON INJ 2 MG/ML 2 ML VIAL IV PRN (21:04)
[2023-06-30] MEDS ORDERED: ONDANSETRON INJ 2 MG/ML 2 ML VIAL IV STA (21:48)
[2023-06-30] MEDS ORDERED: LORATADINE 10 MG TAB PO ONE (21:48)
[2023-06-30] MEDS: ALBUTEROL HFA 8 GM INHALER INH SCH (22:29)
[2023-06-30] MEDS: LACTATED RINGER'S 1,000 ML IV SCH (22:29)
--- OUTSIDE RECORDS SUMMARY | 2023-06-30 22:34 | External Medical Summary | Continuity of Care Document ---
Author Name Unknown Organization [address] Address [address] [place], [place] [id number] Care Team Providers Care First Aid Nurse Name Role Phone Roopa Arteaga Primary Care Physician [phone] Encounter [facility] [phone] Date(s): 06/16/23 - 06/16/[address] [address] [phone] Encounter Diagnosis Need for vaccination(Discharge Diagnosis) - 06/16/23 Attention deficit(Discharge Diagnosis) - 06/16/23 Asthma(Discharge Diagnosis) - 06/16/23 Coronary artery vasospasm(Discharge Diagnosis) - 06/16/23 Primary hyperparathyroidism(Discharge Diagnosis) - 06/16/23 Anxiety(Discharge Diagnosis) - 06/16/23 Hyperlipidemia(Discharge Diagnosis) - 06/16/23 Obstructive sleep apnea syndrome, mild(Discharge Diagnosis) - 06/16/23 Discharge Disposition: Home or Self Care Attending Physician: GABY Arteaga Tara Allergies, Adverse Reactions, Alerts Substance Reaction Severity Status codeine Hives Active EPINEPHrine Drug Induced Heart Attack Ac tive Dilaudid 1 dizziness headache Active Demerol HCl Nausea Vomiting Active Dust sinus pain Mild Active Mold sinus pain Mild Active PHENobarbital nausea Mild Active milk products gi upset Active 1with higher dose Assessment and Plan Extracted from: Title:follow up Author:GABY Arteaga Tara Date:03/30 1.Attention deficit Acute/Chronic: chronic Goal:Resolution/ control Status:stable/controlled Data: records/pt report Plan: Using adderall without side effects. Good appetite. New CSA signed. 2.Asthma Acute/Chronic: chronic Goal:Resolution/ control Status:stable/controlled Data: records/pt report Plan: Sent in alternative for advair. She did not want to go down on dose. 3.Coronary artery vasospasm Acute/Chronic: chronic Goal:Resolution/ control Status:stable/controlled Data: records/pt report Plan:Has not need nitro. No CP/SOB. 4.Primary hyperparathyroidism Acute/Chronic: chronic Goal:Resolution/ control Status:stable/controlled Data: records/pt report Plan: Will check calcium, vit d and pth. 5.Anxiety Acute/Chronic: chronic Goal:Resolution/ control Status:stable/controlled Data: records/pt report Plan: Well controlled with effexor. 6.Hyperlipidemia Acute/Chronic: chronic Goal:Resolution/ control Status:stable/controlled Data: records/pt report Plan: Will check lipids. 7.Obstructive sleep apnea syndrome, mild Acute/Chronic: chronic Goal:Resolution/ control Status:stable/controlled Data: records/pt report Plan: Using cpap. follow up in 6 mo time spent reviewing chart, face to face visit, ordersand documentation: 43 min Immunizations Given and Recorded Vaccine Date Status Refusal Reason influenza virus vaccine, inactivated 06/16/23 Give n influenza virus vaccine, inactivated 04/01/22 Give n influenza virus vaccine, inactivated 03/14/21 Give n influenza virus vaccine, inactivated 05/09/20 Give n influenza virus vaccine, inactivated 02/17/12 Aaron rded SARS-CoV-2 (COVID-19) mRNA-vacc - [id number] 1 03/11/23 Recorded SARS-CoV-2 mRNA (Pfizer 12+) bivalent 2 04/22/22 R ecorded SARS-CoV-2 mRNA ([id number]) 3 10/22/21 Recorded SARS-CoV-2 (COVID-19) mRNA BNT-162b2 vax 4 04/16/21 Recorded SARS-CoV-2 (COVID-19) mRNA BNT-162b2 vax 5 08/16/20 Recorded SARS-CoV-2 (COVID-19) mRNA BNT-162b2 vax 6 07/26/20 Recorded pneumococcal 23-valent vaccine 7 03/31/12 Recorded tetanus/diphtheria/pertuss, acel (Tdap) 02/17/12 R ecorded 1Result Comment: 2023-04-21: Historical information-source unspecified 2Result Comment: 2023-04-21: Historical information-source unspecified 3Result Comment: 2023-04-21: Historical information-source unspecified 4Result Comment: 2023-04-21: Historical information-source unspecified 5Result Comment: 2023-04-21: Historical information-source unspecified 6Result Comment: 2023-04-21: Historical information-source unspecified 7Result Comment: 2019-11-09: Historical information-source unspecified Medications acetaminophen 500 mg oral capsule Start: 11/30/18 12:24:00 EDT, 2 tab, PO, q12h, Disp# 20 tab, Pharmacy: [facility] Start Date: 11/30/18 Stop Date: 12/05/18 Status: Ordered Aerochamber Start: 06/16/23 16:09:00 EST, See Instructions, Disp# 1 each, use with inhaler, Pharmacy: [facility] #[id number] Start Date: 06/16/23 Status: Ordered Albuterol (Eqv-ProAir HFA) 90 mcg/inh inhalation aerosol Start: 04/02/23 8:37:00 EDT, 2 puff, inhaled, q6h, Disp# 8.5 each, Refills: 6, PRN: NEEDED FOR SHORTNESS OF BREATH, Pharmacy: [facility] Start Date: 04/02/23 Status: Ordered ALPRAZolam 0.25 mg oral tablet Start: 12/23/22 17:12:00 EDT, 1 tab, PO, tid, Disp# 30 tab, Refills: 0, PRN: as needed for anxiety,Pharmacy: [facility] #[id number] Start Date: 12/23/22 Status: Ordered amphetamine-dextroamphetamine 20 mg oral tablet Start: 05/25/23 18:48:00 EST, 1 tab, PO, Daily, Disp# 30 tab, Refills: 0, Pharmacy: [id number] Start Date: 05/25/23 Status: Ordered busPIRone 15 mg oral tablet Start: 06/08/23 17:17:00 EST, 1 tab, PO, tid, Disp# 90 tab, Refills: 10, Pharmacy: [id number] Start Date: 06/08/23 Status: Ordered Effexor XR 37.5 mg oral capsule, extended release Start: 12/23/22 14:16:00 EDT, 1 cap, PO, Daily, Disp# 30 cap, Refills: 6, Pharmacy: [id number] Start Date: 12/23/22 Stop Date: 07/21/23 Status: Ordered estradiol 1 mg oral tablet TAKE 1 TABLET BY MOUTH EVERY DAY Start Date: 11/05/20 Status: Ordered gabapentin 100 mg oral capsule Start: 08/13/22 14:46:00 EST, 1 cap, PO, tid, Disp# 90 cap, Refills: 4, Pharmacy: [facility] #[id number] Start Date: 08/13/22 Stop Date: 01/10/23 Status: Ordered hydrocortisone 2.5% topical ointment Start: 05/23/18 8:44:00 EST, 1 appl, topical, bid, Disp# 20 g, Refills: 2, To chronically itchy area in vulva BID PRN Start Date: 05/23/18 Status: Ordered Lac-Hydrin 12% topical lotion Start: 11/26/22 11:09:00 EDT, 1 appl, topical, Daily, Disp# 400 g, Refills: 4, Pharmacy: [facility]/pharmacy #[id number] Start Date: 11/26/22 Stop Date: 04/25/23 Status: Ordered loratadine 10 mg oral capsule Start: 11/30/18 12:24:00 EDT, 10 mg =, PO, Daily, Disp# 10 cap, PRN: allergy symptoms, Pharmacy: [facility] Start Date: 11/30/18 Status: Ordered meclizine 25 mg oral tablet Start: 12/23/22 17:12:00 EDT, See Instructions, Disp# 30 tab, Refills: 3, TAKE 1 TABLET BY MOUTH ASDIRECTED NEEDED FOR DIZZINESS, Pharmacy: [facility]/pharmacy #[id number] Start Date: 12/23/22 Status: Ordered meclizine 25 mg oral tablet Start: 12/23/22 14:17:00 EDT, See Instructions, Disp# 30 tab, Refills: 6, TAKE 1 TABLET BY MOUTH ASDIRECTED NEEDED FOR DIZZINESS, Pharmacy: [facility]/pharmacy #[id number] Start Date: 12/23/22 Status: Ordered nitroglycerin 0.4 mg sublingual tablet Start: 08/29/19 22:36:00 EDT, 1 tab, SL, q5min, If chest pain not relieved in 5 minutes after firstdose, seek immediate medical attention Start Date: 08/29/19 Status: Ordered omega-3 polyunsaturated fatty acids ethyl esters 1000 mg oral capsule Start: 02/23/23 19:57:00 EDT, 1 cap, PO, Daily, Disp# 30 cap, Refills: 11, Pharmacy: [facility]/pharmacy #[id number] Start Date: 02/23/23 Stop Date: 02/18/24 Status: Ordered omeprazole 20 mg oral delayed release capsule Start: 12/23/22 17:12:00 EDT, See Instructions, Disp# 30 cap, Refills: 5, TAKE 1 CAPSULE BY MOUTH EVERY DAY, Pharmacy: [facility]/pharmacy #[id number] Start Date: 12/23/22 Status: Ordered omeprazole 20 mg oral delayed release capsule Start: 12/23/22 14:17:00 EDT, See Instructions, Disp# 30 cap, Refills: 5, TAKE 1 CAPSULE BY MOUTH EVERY DAY, [id number] Start Date: 12/23/22 Status: Ordered ondansetron 4 mg oral tablet, disintegrating Start: 07/03/22 13:55:00 EST, 1 tab, PO, q8h, Disp# 30 tab, Refills: 3, PRN: nausea 2nd line, Pharmacy: [facility]/pharmacy #[id number] Start Date: 07/03/22 Status: Ordered venlafaxine 75 mg oral capsule, extended release Start: 10/21/22 15:07:00 EDT, See Instructions, Disp# 30 cap, Refills: 11, TAKE 1 CAPSULE BY MOUTH EVERY DAY, [id number] Start Date: 10/21/22 Status: Ordered Wixela Inhub 500 mcg-50 mcg inhalation powder Start: 06/16/23 16:08:00 EST, 1 puff, inhaled, bid, Disp# 60 blister, Refills: 11, Pharmacy: [facility]acy #[id number] Start Date: 06/16/23 Stop Date: 06/10/24 Status: Ordered Mental Status 06/16/23 Barriers to Learning one year None evide nt Mandatory Health Literacy Documentation Yes Health Literacy Communication Barriers N ever Primary Language Gabonese Problem List Condition Confirmation Course Effective Dates Status Health Status Informant Anxiety Confirmed Active Xerosis of skin Confirmed Active Asthma Confirmed Active Callus Confirmed Active Carpal tunnel syndrome, right Confirmed Active Alternating constipation and diarrhea Confirmed Active Coronary artery vasospasm Confirmed Active Somnolence, daytime Confirmed Active Depression Confirmed Active Attention deficit Confirmed Active Diverticulosis Confirmed 12/07/16 Active Somnolence Confirmed Active Dry eye Confirmed Active Fatigue Confirmed Active Hammertoe of left foot Confirmed Active Arthralgia of hand Confirmed Active History of kidney stones Confirmed Active H/O diverticulitis of colon Confirmed Active History of [place] (myocardial infarction) Confirmed Active Hyperlipidemia Confirmed Active Irritable bowel syndrome Confirmed Active Nephrolithiasis Confirmed 12/07/16 Active Calcium oxalate monohydrate kidney stones Confirmed Active Persistent insomnia of non-organic origin Confirmed Active Obstructive sleep apnea syndrome, mild Confirmed Active Tinea unguium Confirmed Active Osteoarthritis of CMC joint of thumb Confirmed Active Right leg pain Confirmed Active Lipid screening Confirmed Active Other polyosteoarthritis Confirmed Active Polyneuropathy Confirmed Active Primary hyperparathyroidism Confirmed Active Circadian rhythm sleep disorder, delayed sleep phase type Confirmed Active Weight disorder Confirmed Active Dry mouth Confirmed Active Diagnosis Diagnosis Type Effective Dates Health Status Clinical Service Informant Attention deficit Discharge Diagnosis 06/16/23 Asthma Discharge Diagnosis 06/16/23 Coronary artery vasospasm Discharge Diagnosis 06/16/23 Need for vaccination Discharge Diagnosis 06/16/23 Non-Specifie d Primary hyperparathyroidism Discharge Diagnosis 06/16/23 Hyperlipidemia Discharge Diagnosis 06/16/23 Obstructive sleep apnea syndrome, mild Discharge Diagnosis 06/16/23 Anxiety Discharge Diagnosis 06/16/23 Procedures Procedure Date Related Diagnosis Body Site Status Mammogram - screening 1 10/26/22 C ompleted Chest X-ray 2 03/23/22 Completed Mammogram - screening 3 08/05/21 C ompleted removal of Kidney stone in l eft kidney, cleaned out kidney 02/2019 Compl eted Colostomy 12/16/18 Completed Exploratory laparotomy with sigmoid colectomy and construction of end colostomy. 12/16/18 Completed punch biopsy 05/16/18 Completed Punch biopsy of skin 05/16/18 Comp leted Shave biopsy 05/16/[address] of abdomen and pelvis 4 09/16/[address] of abdomen and pelvis 5 12/07/16 Completed Ultrasound--abdomen 6 10/18/15 Com pleted DEXA - Dual energy X-ray pippa ton absorptiometry 7 12/2014 Completed ORIF Right Leg 8 2012 Complete d Colonoscopy 9, 10, 11 08/24/11 Com pleted Colonoscopy 12, 13 08/23/07 Comple marquez Esophagogastroduodenoscopy 14, 15 08/13/07 Completed Surgical procedure - SInus Surgery 2007 Completed [employer] Cytology report 16 02/04/07 Co mpleted Colonoscopy 17, 18 05/12/05 Comple marquez Cholecystectomy 2004 Completed Chest X-ray 19 07/19/00 Completed Colonoscopy 20 06/17/[address] of abdomen and pelvis 21 05/29/99 Completed Ultrasound 22 05/29/99 Completed Hysterectomy 1998 Completed Tonsillectomy and adenoidectomy 1973 Completed 1IMPRESSION: ACR BI-RADS CATEGORY 1: NEGATIVE There is no mammographic edvidence of malignancy. A 1 year screening mammogram is recommended. (10/27/2023) The patient will receive written notification of the results. 2no active disease in the chest 3Impression: There is no mammographic evidence of malignancy. A 1 year screening mammogram is recommended. (08/06/2022) The patient will receive written notificatoin of the results. 4Moderate to severe fecal loading of the large bowel Nonobstructed bowel 5Findings consistent with acute sigmoid diverticulitis. Moderate pericolonic inflitration. No free air or abscess. follow-up colonoscopy is recommended to exclude the unlikely possibility of an underlying mucosal lesion. Moderate to large amount of stool within the colon. Bilateral ne[jrolithesis. 61) B/L nephrolithiasis. No hydronephrosis 2) Prior cholecystectomy 7DEXA low to moderate risk of fracture 8broken leg in 2012 9colo and path reviewed with conclusions as noted 10A. Ileum, biopsy: smallintestinal mucosa wiwthno significant histopathologic changes. B. Ascending colon, biopsy: colonic mucosa with no significant histopathologic changes. C. Descending colon, biopsy: Colonic mucosa with no significant histopathologic changes. [id number] colo [facility]--exam to TI normal, random path DC, AC, TI done but path not in papers 12Pathology results: A) Ascending colon, biopsy: focal acute colitis. B) Colon, hepatic flexure, biopsy: colonic mucosa with no significatn histopathologic changes. C) Transverse colon, biopsy: colonicmucosa with no significant histopathologic changes. D) Descednding colon, biopsy: focal acute colitis E) Duodenum, second part, biopsy: Mild duodentis F) gastric antrum,biopsy: Mild chronic gastritisG) Gastric fundus, polypectomy: fundic gland polyp 13A 3 mm polyp in the ascending colon. Resected but could not be retrieved. The examination was otherwise normal except fo rthe prominent folds that were biopsied and a few diverticula 14Normal esophagus. Multiple gastric polyps. They were biopsied. Antral biopsy for H. pylori testing was done. Normal examined duodenum. 2nd part was biopsied. 15gastric antrum,biopsy: Mild chronic gastritis, Gastric fundus, polypectomy: fundic gland polyp 16Diagnosis negative for intraepithellal lesion or malignancy 17colo report found exam to ileum, difficult exam seondary to diverticula, restricted mobility, significant looping and tortuous colon, 3 mm polyp pat 80 cm. 18colo path seen but no report. path at 80 cm focal active colitis 19Impression No active disease in the chest 20[facility] colo 1999, exam to DC could not pass proximally ? stricture 21Impression 1. Small amount of free fluid within the pelvis 2. No findings to suggest acute appendicitis 22impression No Abnormality appreciated Vital Signs Most recent to oldest [Reference Range]: 1 Patient Weight 108.3 kg (06/16/23 3:37 PM) Heart Rate 84 bpm (06/16/23 3:37 PM) Respiratory Rate 16 br/min (06/16/23 3:37 PM) Blood Pressure 140/90mmHg (06/16/23 3:37 PM) Cuff Pulse Pressure 50 mmHg (06/16/23 3:37 PM) Social History Social History Type Response Smoking Status Never smoked cigaret yeny Sex Female Implantable Device List Procedure Provider Procedure Date Device Type Site Unknown Unknown 01/12/20 Unknown Unknown Device Identifier Serial Number Lot or Batch Number Manufacturing Date Expiration Date Distinct Identification Code MRI Safety Implantable Status Assigning Authority Unknown Unknown [id number] Unknown 10/04/22 Unknown Unknown Active Unknown Procedure Provider Procedure Date Device Type Site Unknown Unknown 02/14/19 Unknown Unknown Device Identifier Serial Number Lot or Batch Number Manufacturing Date Expiration Date Distinct Identification Code MRI Safety Implantable Status Assigning Authority Unknown Unknown [id number] Unknown 10/17/21 Unknown Unknown Active Unknown FCM Outpt Note * GABY Arteaga Tara: PERFORM Event Display: FCM Outpt Note Authored Date: [id number] Chief Complaint discuss disability paperwork, your part is all done, wants flu shot History of Present Illness She started getting some disability money. Has a SSI exams coming up for disability. She had covid a few months ago and resolved with no correction effects. She had had labia surgery. She also saw plastic surgeon for possible breast reduction. Review of Systems Constitutional: No fever, chills, sweats EENT:No vision change, eye pain, rhinorrhea, sinus pain, epistaxis, dysphagia, change in hearing,tinnitus, vertigo, oral ulcers or lesions. Pulmonary: No shortness of breath, dyspnea with exertion, cough, hemoptysis, wheezing, chest pain. Cardiovascular: No chest pain, palpitations, syncope, edema, cyanosis, claudication, orthopnea. GI: No nausea, vomiting, diarrhea, melena, hematochezia, change in appetite, abdominal pain, changein bowel habits or stools. Ostomy is working well. : No dysuria, frequency, urgency, urinary incontinence, hematuria, nocturia. Musculoskeletal: No joint swelling or pain, muscle pain, back pain Neurologic: No headache, lightheadedness, dizziness,. Psychiatric: No depression, anxiety Endocrine: No weight change, heat or cold intolerance, tremor, insomnia, polyuria, polydipsia, polyphagia, abnormal hair growth, change in nails Physical Exam Vitals & Measurements HR:84(Monitored) RR:16 BP:140/90 SpO2:99% WT:108.300kg(Dosing) WT:108.3kg PHQ2 Data(Data Documented on:06/16/2023 15:37) Emotional health assessment NEGATIVE head- normocephalic neck-no lymphadenopathy, masses, or thyromegaly, +carotid pulses, no bruits, trachea midline Pulmonary- chest expansion symmetric, CTA (clear to auscultation), eupnea, no adventitious sounds (rales, crackles, wheezes) CV (cardiovascular)- RRR no m/r/g (systolic ejection murmur, rubs, gallops), good peripheral perfusion extremitiesNo edema or erythema. skin-good turgor w/o lesions, redness, cyanosis, edema nails- no clubbing or deformities w good cap refill Neuro:Alert, Oriented, Psy:no homicidal or suicidal ideations. Assessment/Plan 1.Attention deficit Acute/Chronic: chronic Goal:Resolution/ control Status:stable/controlled Data: records/pt report Plan:Using adderall without side effects. Good appetite. New CSA signed. 2.Asthma Acute/Chronic: chronic Goal:Resolution/ control Status:stable/controlled Data: records/pt report Plan:Sent in alternative for advair. She did not want to go down on dose. 3.Coronary artery vasospasm Acute/Chronic: chronic Goal:Resolution/ control Status:stable/controlled Data: records/pt report Plan:Has not need nitro. No CP/SOB. 4.Primary hyperparathyroidism Acute/Chronic: chronic Goal:Resolution/ control Status:stable/controlled Data: records/pt report Plan:Will check calcium, vit d and pth. 5.Anxiety Acute/Chronic: chronic Goal:Resolution/ control Status:stable/controlled Data: records/pt report Plan:Well controlled with effexor. 6.Hyperlipidemia Acute/Chronic: chronic Goal:Resolution/ control Status:stable/controlled Data: records/pt report Plan:Will check lipids. 7.Obstructive sleep apnea syndrome, mild Acute/Chronic: chronic Goal:Resolution/ control Status:stable/controlled Data: records/pt report Plan:Using cpap. follow up in 6 mo time spent reviewing chart, face to face visit, ordersand documentation: 43 min Problem List/Past Medical History Ongoing Alternating constipation and diarrhea Anxiety Arthralgia of hand Asthma Attention deficit Calcium oxalate monohydrate kidney stones Callus Carpal tunnel syndrome, right Circadian rhythm sleep disorder, delayed sleep phase type Coronary artery vasospasm Depression Diverticulosis Dry eye Dry mouth Fatigue H/O diverticulitis of colon Hammertoe of left foot History of kidney stones History of [place] (myocardial infarction) Hyperlipidemia Irritable bowel syndrome Lipid screening Nephrolithiasis Obstructive sleep apnea syndrome, mild 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 Polyneuropathy Primary hyperparathyroidism Right leg pain Somnolence Somnolence, daytime Tinea unguium Visual disturbance Weight disorder Xerosis of skin Historical Abnormal brain MRI Abnormal weight loss Constipation Diarrhea Discomfort of right ear Heat intolerance Heme positive stool Hx of colonic polyps Hx of diverticulitis of colon Hyperparathyroidism Hypoglycemia Iliotibial band syndrome, right leg Kidney stone on right side Need for hepatitis C screening test Neuropathy Neuropathy of leg Pain in both feet Right lateral epicondylitis Trigger finger, right middle finger Procedure/Surgical History Mammogram - screening (10/26/2022)Chest X-ray (03/23/2022)Mammogram - screening (08/05/2021)removal of Kidney stone in left kidney, cleaned out kidney (02/2019)Colostomy (12/16/2018)Exploratory laparotomy with sigmoid colectomy and construction of end colostomy. (12/16/2018)Shave biopsy (05/16/2018)Punch biopsy of skin (05/16/2018)punch biopsy (05/16/2018)CT of abdomen and pelvis (09/16/2017)CT of abdomen and pelvis (12/07/2016)Ultrasound--abdomen (10/18/2015)DEXA - Dual energy X-ray photon absorptiometry (12/2014)ORIF Right Leg (2012)Colonoscopy (0 08/24/2011)Colonoscopy (08/23/2007)Esophagogastroduodenoscopy (08/13/2007)Surgical procedure - SInus Surgery (2007)[employer] Cytology report (02/04/2007)Colonoscopy (05/12/2005)Cholecystectomy (2004)Chest X-ray (07/19/2000)Colonoscopy (06/17/1999)CT of abdomen and pelvis ( 999)Ultrasound (05/29/1999)Hysterectomy (1998)Tonsillectomy and adenoidectomy (1972) Medications acetaminophen(acetaminophen 500 mg oral capsule), 2 tab, PO, q12h albuterol(Albuterol (Eqv-ProAir HFA) 90 mcg/inh inhalation aerosol), 2 puff, inhaled, q6h, PRN ALPRAZolam(ALPRAZolam 0.25 mg oral tablet), 0.25 mg= 1 tab, PO, tid, PRN ammonium lactate topical(Lac-Hydrin 12% topical lotion), 1 appl, topical, Daily, 4 refills amphetamine-dextroamphetamine(amphetamine-dextroamphetamine 20 mg oral tablet), 20 mg= 1 tab, PO, Daily busPIRone(busPIRone 15 mg oral tablet), 1 tab, PO, tid estradiol(estradiol 1 mg oral tablet) fluticasone-salmeterol(Wixela Inhub 500 mcg-50 mcg inhalation powder), 1 puff, inhaled, bid, 11 refills gabapentin(gabapentin 100 mg oral capsule), 100 mg= 1 cap, PO, tid, 4 refills hydrocortisone topical(hydrocortisone 2.5% topical ointment), 1 appl, topical, bid, 2 refills inhalation accessory(Aerochamber), See Instructions loratadine(loratadine 10 mg oral capsule), 10 mg, PO, Daily, PRN meclizine(meclizine 25 mg oral tablet), See Instructions, 3 refills meclizine(meclizine 25 mg oral tablet), See Instructions, 6 refills nitroglycerin(nitroglycerin 0.4 mg sublingual tablet), 0.4 mg= 1 tab, SL, q5min omega-3 polyunsaturated fatty acids(omega-3 polyunsaturated fatty acids ethyl esters 1000 mg oral capsule), 1000 mg= 1 cap, PO, Daily, 11 refills omeprazole(omeprazole 20 mg oral delayed release capsule), See Instructions, 5 refills omeprazole(omeprazole 20 mg oral delayed release capsule), See Instructions, 5 refills ondansetron(ondansetron 4 mg oral tablet, disintegrating), 4 mg= 1 tab, PO, q8h, PRN, 3 refills venlafaxine(Effexor XR 37.5 mg oral capsule, extended release), 37.5 mg= 1 cap, PO, Daily, 6 refills venlafaxine(venlafaxine 75 mg oral capsule, extended release), See Instructions, 11 refills Allergies Dust (Mild)sinus pain Mold (Mild)sinus pain PHENobarbital (Mild)nausea Demerol HClNausea, Vomiting Dilaudiddizziness, headache EPINEPHrineDrug Induced Heart Attack codeineHives milk productsgi upset Social History Smoking Status Never smoked cigarettes Tobacco Use:Never smoker Family History Alcoholism: Father. Arthritis: Mother. Arthritis: Sister. Back pain: Mother, Sister and Brother. Cancer: Mother. Colon polyps: Mother. Gallbladder disease: Mother and MGM. Heart attack: Father. Heart disease: Father and MGM. Hypertension: MGM. Kidney disease: Sister. Kidney failure...: Father. Osteoporosis: Mother. Reflux: Mother. Renal failure: Father. Stroke: Father. Type II diabetes mellitus: MGM. Health Status Family Member(s) Immunizations Vaccine Date Status influenza virus vaccine, inactivated 06/16/2023 Given SARS-CoV-2 (COVID-19) mRNA-vacc - [id number] 03/11/2023 Recorded Comments : 2023-04-21: Historical information-source unspecified SARS-CoV-2 mRNA (Pfizer 12+) bivalent 04/22/2022 Recorded Comments : 2023-04-21: Historical information-source unspecified influenza virus vaccine, inactivated 04/01/2022 Given SARS-CoV-2 mRNA ([id number]-bpi) 10/22/2021 Recorded Comments : 2023-04-21: Historical information-source unspecified SARS-CoV-2 (COVID-19) mRNA BNT-162b2 vax 04/16/2021 Recorded Comments : 2023-04-21: Historical information-source unspecified influenza virus vaccine, inactivated 03/14/2021 Given SARS-CoV-2 (COVID-19) mRNA BNT-162b2 vax 08/16/2020 Recorded Comments : 2023-04-21: Historical information-source unspecified SARS-CoV-2 (COVID-19) mRNA BNT-162b2 vax 07/26/2020 Recorded Comments : 2023-04-21: Historical information-source unspecified influenza virus vaccine, inactivated 05/09/2020 Given pneumococcal 23-valent vaccine 03/31/2012 Recorded Comments : 2019-11-09: Historical information-source unspecified tetanus/diphtheria/pertuss, acel (Tdap) 02/17/2012 Recorded influenza virus vaccine, inactivated 02/17/2012 Recorded Recommendations Health Maintenance Pending(in the next year) Due Adult COVID-19 Vaccination due06/16/23Unknown Frequency Adult Social Determinants of Health Screening due06/16/23Unknown Frequency Adult Tdap/Td Vaccine due06/16/23Unknown Frequency Pneumococcal Vaccine Adults and Adolescents with Chronic Illness due06/16/23One-time only Shingles Vaccine due06/16/23One-time only Due In Future Adult Influenza Vaccine not due until12/05/23and every 1year Satisfied(in the past 1 year) Satisfied Adult Influenza Vaccine on06/16/23.Satisfied by RINKU Melendez Sharon Body Mass Index on04/13/23.Satisfied by TONY Singh Kyla Hepatitis C Screening on10/29/22.Satisfied by Contributor_system, [employer] Lipid Screening on11/03/22.Satisfied by Contributor_system, [id number] Electronic Signature on File Electronically Reviewed/Signed by: GABY Ho Author Signature Dt/Tm:06/16/2023 05:01 PM Department of Family Medicine TB Patient Care team information Care Team Personnel Name: GABY Arteaga Tara Position: Nurse Pract - Family Med Member Role: Primary Care Provider Address: Address: [address] [place] [address] [place] Name: Sharri, PhD, Elvira Lopez Position: Physician - Sleep Medicine Member Role: Lifetime Relationship Address: Address: [address] [place] [address] Name: MAUREEN Pringle Christina L Position: Physician - Podiatry Member Role: Lifetime Relationship Address: Address: [address] [address] Name: Elias Reagan Kyle Position: Pharmacist Member Role: Pharmacy - Lifetime Address: Address: [address] [place] [address] [place] [address] Care Team Related Persons Name: ELPIDIO ROBERTS Address: home [address] [place] [address] [place] [id number]
[2023-07-01] MEDS: ALBUTEROL HFA 8 GM INHALER INH SCH ×3 (01:29→13:30)
[2023-07-01 04:36] LABS: Hematocrit (blood only) 39.7 % (37.0-47.0); Hemoglobin 13.4 g/dl (12.0-16.0); Mean Corpuscular Hemoglobin 30.5 pg (25.0-34.0); Mean Corpuscular Hgb Conc 33.8 g/dL (32.0-36.0); Mean Corpuscular Volume 90.4 fL (80.0-100.0); Mean Platelet Volume 9.6 fL (9.4-12.4); Platelet Count 206 K/uL (130-400); RDW Coefficient of Variation 12.3 % (11.5-14.5); RDW Standard Deviation 40.4 fL (36.4-46.3); Red Blood Count 4.39 M/uL (4.20-5.40); White Blood Count 6.97 K/ul (4.8-10.8)
[2023-07-01 04:49] LABS: Creatinine Clr Calc Pharmacy 88.6 ml/min; Est GFR (Non-African American) 72.5 ml/min; Potassium 3.5 mmol/L (3.5-5.1)
[2023-07-01 05:44] LABS: Troponin I High Sensitivity 19.3 pg/ml (0-14)
[2023-07-01] MEDS ORDERED: AMOXICILLIN/CLAVULANATE 875 MG TAB PO SCH ×2 (08:00→11:30)
[2023-07-01] MEDS ORDERED: busPIRone 7.5 MG TAB PO SCH (09:00)
[2023-07-01] MEDS ORDERED: PANTOprazole 40 MG TAB PO SCH (09:00)
[2023-07-01] MEDS ORDERED: FLUTICASONE/VILANTEROL 200/25MCG 14 PUFFS/INHALER INH SCH (09:00)
[2023-07-01] MEDS: LACTATED RINGER'S 1,000 ML IV SCH (09:34)
[2023-07-01] MEDS ORDERED: FLUTICASONE PROPIONATE NA SPR 16 GM BTL SCH (11:45)
[2023-07-01] MEDS ORDERED: MECLIZINE HCL 25 MG TAB PO SCH (12:00)
[2023-07-01 13:08] LABS: Adenovirus F 40/41 PCR Not Detected (NotDetected); Astrovirus PCR Not Detected (NotDetected); Campylobacter PCR Not Detected (NotDetected); Cryptosporidium PCR Not Detected (NotDetected); Cyclospora cayetanensis PCR Not Detected (NotDetected); Entamoeba histolytica PCR Not Detected (NotDetected); Enteroaggregative E.coli(EAEC) Not Detected (NotDetected); Enteropathogenic E.coli (EPEC) Not Detected (NotDetected); Enterotoxigenic E.coli (ETEC) Not Detected (NotDetected); Giardia lamblia PCR Not Detected (NotDetected); Norovirus GI/GII PCR Not Detected (NotDetected); Plesiomonas shigelloides PCR Not Detected (NotDetected); Rotavirus A PCR Not Detected (NotDetected); Salmonella PCR Not Detected (NotDetected); Sapovirus PCR Not Detected (NotDetected); Shiga-like Toxin E.coli (STEC) Not Detected (NotDetected); Shigella/Enteroinvasive E.coli Not Detected (NotDetected); Vibrio cholerae PCR Not Detected (NotDetected); Vibrio species PCR Not Detected (NotDetected); Yersinia enterocolitica PCR Not Detected (NotDetected)
--- NOTE | 2023-07-01 16:07 | XCELERA ---
[id number]
--- NOTE | 2023-07-01 18:37 | Discharge Summary ---
Date of Service July 01, 2023 Admission HPI Per Admitting Provider Pt is a 58 yo female with PMH of Takotsubo cardiomyopathy, HTN, hyperparathyroidism, GERD, asthma, depression, diverticulitis complicated by perforation resulting in colectomy/colostomy, and demyelinating disorder presenting to the ER d/t nausea and diarrhea for the past few days. Pt states that nausea, dizziness, and diarrhea started ~1 week ago. Over this time, she had continued symptoms. She denies chest pain and SOB. She does have a hx of asthma but has been using her inhalers at home and this has been stable. She also has a hx of LA in the setting of epinephrine usage during a sinus surgery. Her last incident of chest pain was around 1 year ago. In the ER, pt received meclizine 25 mg and augmentin x1. The meclizine did help her symptoms. Principal Diagnosis Acute gastroenteritis, right sided otitis media, vertigo Discharge Exam PHYSICAL EXAMINATION Last 24h vital signs reviewed, see documentation in flowsheet General: comfortable appearing, no distress, sitting up on edge of the bed HEENT: Normocephalic, atraumatic, pupils round and equal, sclerae anicteric, no conjunctival injection, moist mucus membranes Lungs: Normal respiratory effort. Clear to auscultation bilaterally. No RRW Heart: Regular rate and rhythm, no murmurs. No JVD Abdomen: Soft, nontender, nondistended. colostomy left lower quadrant with yellow stool output, loose but not jenin watery. Bowel sounds present. Extremities: Warm, dry, well-perfused. 1+ lower extremity edema. Neuro: Alert and oriented x 4, face symmetric, moves 4 extremities well Psych: Normal affect and behavior Discharge Data Allergies Allergy/AdvReac Type Severity Reaction Status Date / Time codeine Allergy Intermediate Hives Verified 05/20/23 14:47 lactose Allergy Intermediate ABDOMINAL Verified 05/20/23 14:47 PAIN, DIARRHEA meperidine Allergy Intermediate n/v Verified 05/20/23 14:47 phenobarbital Allergy Mild Nausea Verified 05/20/23 14:47 Consultations 06/30/23 20:24 ED Decision to Admit Stat 07/01/23 14:29 Consult BEENAG black jack dealer Routine Ordered Studies 06/30/23 14:08 CT abd pelvis IV con only Stat Abdomen/Pelvis CT 06/30/23 14:08 CT abd pelvis IV con only CLINICAL HISTORY: lower abd pain TECHNIQUE: Helical axial images of the abdomen and pelvis were obtained and displayed. Automated dose lowering techniques and/or adjustment according to patient size were utilized for this exam. This exam was performed with intravenous contrast. CT DOSE: 1426.36 mGy.cm COMPARISON: Comparison is made to CT abdomen pelvis 12/11/2018 FINDINGS: Lower chest: Bronchiectasis is seen. Liver: Hepatic steatosis is noted. Gallbladder and biliary tree: Patient is status post cholecystectomy. No intra- or extrahepatic biliary ductal dilation. Pancreas: Fatty replacement of the pancreas is seen. Spleen: Unremarkable. Adrenals: Unremarkable. Kidneys and ureters: Nonobstructive nephrolithiasis is seen. Multiple cysts are seen. Bladder: Unremarkable. Reproductive organs: Unremarkable. Bowel: Status post partial colectomy with a diverging colostomy. The appendix is normal. Lymph nodes Retroperitoneal: Unremarkable. Pelvic: Unremarkable. Mesenteric: Unremarkable. Peritoneum: Normal. Vessels: Unremarkable. Abdominal wall: A parastomal hernia in the left lower quadrant contains only fat. Bones: Unremarkable. IMPRESSION: No acute abnormalities. Postsurgical changes of partial colectomy with a left lower quadrant colostomy. Additional findings as above. ACT 112: Negative or not required by law. Electronically signed by: Jhonathan Ross M.D. 06/30/2023 4:31 PM Chest X-Ray 06/30/23 14:08 XR chest 1V not portable HISTORY: 58 years-old Female FLS. [facility] 1425 acute flulike symptoms COMPARISON: Chest radiograph 04/06/2023 TECHNIQUE: AP view of the chest FINDINGS: Cardiac mediastinal and hilar silhouettes are unchanged. There is no pneumothorax, pleural effusion or airspace consolidation. The bones appear grossly intact. Mild upper thoracic levoscoliosis. IMPRESSION: No acute process. ACT 112: Negative or not required by law. The above report was generated using voice recognition software. It may contain grammatical, syntax or spelling errors. Electronically signed by: Ariel Byrd M.D. 06/30/2023 4:47 PM 07/01/23 04:17 07/01/23 04:17 Hospital Course (1) Vertigo: Pt is a 58 yo female with PMH of Takotsubo cardiomyopathy in 2007, HTN, hyperparathyroidism, GERD, asthma, depression, diverticulitis complicated by perforation resulting in colectomy/colostomy, and demyelinating disorder presenting to the ER d/t nausea and diarrhea for the past few days. ED evaluation included CT of the abdomen and pelvis that did not show any significant acute findings. CBC and CMP were unremarkable. Abdominal exam remained benign. She remained afebrile. She was able to tolerate oral liquids and food and maintain hydration. respiratory and stool Bio[employer] testing were negative.. presented with symptoms of acute gastroenteritis and also upper respiratory symptoms suggestive of viral origin. She was treated with IV fluids and supportive care and nausea resolved, stool output improved. She was having right ear pain and fullness with some effusion behind tympanic membrane present on exam. we will treat this with 7 days of Augmentin Flonase and hmgn-mwk-oqkcduh decongestants. Vertigo symptoms improved with meclizine. She had minimally elevated high-sensitivity troponin with max of 19 that later down trended. There were no acute ST changes on her EKG. she did not have chest pain. Echocardiogram did not show any wall motion abnormalities. There is no evidence of acute coronary syndrome, rather this picture is consistent with mild cardiac strain in the setting of acute illness. her echocardiogram was notable for Normal EF, severe LVH, diastolic dysfunction and suggestion of conduction system disease based on septal motion - she is not on any antihypertensives but had labile BP in the ED was sometimes hypertensive, which could be the etiology of the LVH however other things need to be considered if she is not in fact chronically hypertensive - follow-up for further evaluation of possible hypertension in primary care. She would likely benefit from diuretic and MICHELLE but hesitate to start this today with gastroenteritis - made referral to outpatient cardiology for follow-up Depression - continue home venlafaxine 112.5 mg nightly, buspirone 15mg TID GERD - continue omeprazole 20 mg daily or formulary equivalent Neuropathy - continue gabapentin 100 mg nightly Asthma - well controlled, no acute exacerbation - continue home advair and albuterol PRN she has obstructive sleep apnea and is on CPAP (2) Depression: (3) Asthma: (4) Demyelinating disorder: (5) HTN (hypertension): (6) Eustachian tube dysfunction: (7) Viral gastroenteritis: Total Time Total Time Spent Total Time Spent (In Minutes): I personally spent: 40 minutes today on clinical care activities including: reviewing chart notes and vital signs reviewing labs reviewing studies discussion with waste salvager, reviewing echo examining and counseling the patient writing orders documentation Discharge Plan Discharge Items Patient Disposition: Home - Self-Care Reason For Visit: NAUSEA, DIARRHEA, ELEVATED TROP Discharge Diagnosis: acute gastroenteritis, otitis media Activity: Resume your previous activity Non-emergency contact: Primary Care Provider Call non-emergency contact if: you have any medication questions and your symptoms worsen Follow-up/Referrals: Claudy Melchor MD [Primary Care Provider] - Diet: Regular Addtl Attending Provider Instructions: Nausea, diarrhea, abdominal pain. Viral or bacterial ear infection (otitis media), vertigo. -most likely you have a virus -stay hydrated, drink plenty of fluids -meclizine as needed for vertigo - this also works on nausea -amoxicillin-clavulanate for possible ear infection -you can also take ngfw-pab-xnpstsc decongestants We checked a nasal swab and stool sample for infection - it was negative, but these kind of tests don't rock picker everything Your Echo (heart ultrasound) did not show any signs of a heart attack. Your heart squeeze is strong. You do have some thickening of your heart muscle on Echo and EKG - this is often related to laborer marine terminal high blood pressure, but there are other causes which should be considered -I made an outpatient referral to cardiology for follow up of this. The clinic should be contacting you to schedule Pending Studies at Discharge: Yes (stool test) Stand-Alone Forms: My [facility] Razz, Smoking Cessation Medications and DC Order Prescriptions: New meclizine 25 mg tablet 25 mg PO BID PRN (Reason: dizziness) Qty: 20 0RF amoxicillin-pot clavulanate 875-125 mg tablet 1 tab PO BID Qty: 14 0RF Continued estradiol 1 mg tablet 1 mg PO DAILY Qty: 90 3RF albuterol sulfate 90 mcg/actuation HFA aerosol inhaler 2 puff INHALATION Q6H PRN (Reason: sob) Qty: 8.5 5RF omeprazole 20 mg tablet,delayed release (DR/EC) 20 mg PO QAM Qty: 90 1RF estradiol 0.1 mg/24 hr patch weekly 1 patch topical .weekly Qty: 4 11RF buspirone 15 mg tablet 15 mg PO TID ondansetron 4 mg tablet,disintegrating 4 mg PO Q8 PRN (Reason: Nausea And Vomiting) gabapentin 100 mg Capsule 100 mg PO HS fluticasone propion-salmeterol [Advair Diskus] 500-50 mcg/dose Blister With Device 1 inh INHALATION BID omega 5-lao-bhr-fish oil [Fish Oil] 1,000 mg (120 mg-180 mg) Capsule 1 cap PO DAILY nitroglycerin 0.4 mg tablet, sublingual 0.4 mg SL DIRECTED PRN (Reason: Chest Pain) Qty: 30 0RF venlafaxine 37.5 mg Tablet 37.5 mg PO HS Rx Instructions: taken w/ 75mg tablet venlafaxine 75 mg tablet 75 mg PO HS Rx Instructions: taken w/37.5mg tablet dextroamphetamine-amphetamine 20 mg tablet 1 tab PO DAILY Patient Comments: splits in 4's, doesn't like to take too much at once Discharge Orders: Discharge Order (Routine); Ordered 07/01/23 Ordered By: Kaela Cee Admission Data Admit Date/Time: 06/30/23 21:04 Attending Provider: Kaela Cee Admit Provider: Claudia Becerril Primary Care Provider: Claudy Melchor Other Providers: Harjit Damico Other Interventions: Discharge Summary Assessment (RN) Last Done: 07/01/23 15:34 Coding Level of Care Code 29069 INP/OBS DISCH >30 MIN Diagnoses Vertigo R42 Depression F32.9 Mild intermittent asthma with acute exacerbation J45.21 Asthma severity: mild Asthma persistence: intermittent Asthma complication type: with acute exacerbation Demyelinating disorder G37.9 HTN (hypertension) I10 Eustachian tube dysfunction H69.90 Viral gastroenteritis A08.4
--- NOTE | 2023-07-01 19:48 | Electrocardiogram Report ---
Test Reason : Blood Pressure : / mmHG Vent. Rate : 078 BPM Atrial Rate : 078 BPM P-R Int : 176 ms QRS Dur : 100 ms QT Int : 376 ms P-R-T Axes : 049 -46 108 degrees QTc Int : 428 ms Normal sinus rhythm Left anterior fascicular block Left ventricular hypertrophy with repolarization abnormality Possible Lateral infarct , age undetermined Abnormal ECG When compared with ECG of 06-APR-2023 13:27, Borderline criteria for Lateral infarct are now Present Inverted T waves have replaced nonspecific T wave abnormality in Lateral leads Confirmed by Sushil Redding ([id number]) on 07/01/2023 7:48:19 PM Referred By: REFERRED SELF Confirmed By:James Redding
[2023-07-01] MEDS ORDERED: GABAPENTIN 100 MG CAP PO SCH (21:00)
[2023-07-01] MEDS ORDERED: VENLAFAXINE HCL XR 37.5 MG CAPXR PO SCH (21:00)
[2023-07-01] MEDS ORDERED: VENLAFAXINE HCL XR 75 MG CAPXR PO SCH (21:00)
--- NOTE | 2023-07-02 05:48 | Billing Data ---
Date of Service July 02, 2023 Coding Level of Care Code 85720 INT INP/OBS CARE
== END 2023-07-01 15:34 | disposition home or self-care (01) ==
LOC: ED 14:02 → EDINP 14:02 → SUATTDRO 21:04 → EDINP 21:55